=== PATIENT | female | born 1985 | race Caucasian/White ===

== ENCOUNTER 2016-10-23 22:32 | Emergency (ER) | payer SELFPAY ==
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
[2016-10-23] MEDS: ALPRAZOLAM 0.25 MG TABLET PO ONE (23:32)
== END 2016-10-23 23:47 | disposition home or self-care (01) ==
LOC: ER 22:32
DX: F41.9 Anxiety disorder, unspecified (principal); R07.9 Chest pain, unspecified; R20.0 Anesthesia of skin; R68.2 Dry mouth, unspecified
CPT/HCPCS: 93005; 93010; 99284

== ENCOUNTER 2017-09-26 10:30 | Emergency (ER) | payer MEDICAID ==
--- NOTE | 2017-09-26 10:53 | Emergency Department Record ---
History of Present Illness - General Chief complaint: Dental Stated complaint: Tooth/Oral pain Time Seen by Provider: 09/26/17 10:38 Source: Patient Mode of Arrival: Ambulatory Limitations: No limitations - History of Present Illness Initial comments: The patient is here due to L lower jaw molar pain for 2-3 days which is worse for the last 24 hours. She states she has had a filling missing from one of the molars for a long time and now thinks it could be causing the problem. She had a Laparoscopy done 5 days ago and since has had issues there. The pain is radiating to her L ear at times. MD complaint: Tooth pain Onset/Timin -: Days(s) Location: L ear, Other Severity: Moderate Severity scale (1-10): 9 Quality: Aching Consistency: Constant Improves with: None Worsens with: None Associated Symptoms: Other - Related Data Home Medications Medication Instructions Recorded Confirmed Last Taken Hydrocodone/Acetaminophen [[place] 1 tab PO ASDIR 09/26/17 09/26/17 Unknown 5-325 Tablet] Ibuprofen 600 mg PO ASDIR 09/26/17 09/26/17 Unknown Previous Rx's Medication Instructions Recorded Clindamycin HCl [Cleocin HCl] 300 mg PO QID #28 capsule 09/26/17 Allergies Allergy/AdvReac Type Severity Reaction Status Date / Time amoxicillin Allergy HIVES Verified 09/26/17 10:41 dicyclomine HCl [From Bentyl] Allergy HIVES Verified 09/26/17 10:41 Penicillins Allergy HIVES Verified 09/26/17 10:41 Travel Screening - Travel/Exposure Within Last 30 Days Have you traveled within the last 30 days?: No Review of Systems Constitutional: Denies: Chills, Fever Past Medical History - SOCIAL HISTORY Smoking Status: Current every day smoker Alcohol Use: None Drug Use: None - RESPIRATORY Hx Respiratory Disorders: Yes Hx Asthma: Yes (as a child) - CARDIOVASCULAR Hx Cardio Disorders: No - NEURO Hx Neuro Disorders: No - GI Hx GI Disorders: No - Hx Genitourinary Disorders: Yes Hx UTI: Yes - ENDOCRINE Hx Endocrine Disorders: No - MUSCULOSKELETAL Hx Musculoskeletal Disorders: No - PSYCH Hx Psych Problems: Yes Hx Anxiety: Yes - HEMATOLOGY/ONCOLOGY Hx Hematology/Oncology Disorders: No Family Medical History Any Significant Family History?: Yes Hx Cancer: Grandparents Hx Diabetes: Father, Brother/Sister, Grandparents Hx Heart Disease: Grandparents Physical Exam - General General Appearance: Alert, Cooperative, No acute distress - Head Head exam: Atraumatic, Normocephalic, Normal inspection - Eye Eye exam: Normal appearance, PERRL, EOMI - ENT ENT exam: Normal exam, Mucous membranes moist, Normal external ear exam, Normal orophraynx, TM's normal bilaterally Teeth exam: Normal inspection, Dental caries, Dental tenderness # (18 and 19. tapping on the teeth does reproduce the pain. There is no gum line swelling or abscess. There is a filling missing on tooth # 19.) Throat exam: Normal inspection - Neck Neck exam: Normal inspection, Full ROM. negative: Tenderness - Respiratory Respiratory exam: Normal lung sounds bilaterally. negative: Respiratory distress - Cardiovascular Cardiovascular Exam: Regular rate, Normal rhythm, Normal heart sounds Course Vital Signs 09/26/17 10:40 Temperature 97.6 F Pulse Rate [ 71 Pulse Ox Probe] Respiratory 16 Rate Blood Pressure 129/91 [Left Arm] Pulse Ox 100 - Reevaluation(s) Reevaluation #1: I explained to the patient that she will need to take the Abx and see a Dentist YOMI and she does understand the plan. 09/26/17 10:56 Disposition Disposition: Discharge Clinical Impression: Pain, dental Disposition: Home, Self-Care Condition: (1) Good Instructions: Toothache (ED) Additional Instructions: Please see your Dentist YOMI. Take the Clindamycin as directed along with your home pain medicines. Please return to the ER for any worsening symptoms. Prescriptions: Clindamycin HCl [Cleocin HCl] 300 mg PO QID #28 capsule Forms: Patient Portal Access Time of Disposition: 10:53 Quality - Quality Measures Quality Measures: N/A - Blood Pressure Screening View Details: Yes Does Patient Have Any of the Following: No Blood Pressure Classification: Hypertensive Reading Systolic Measurement: 129 Diastolic Measurement: 91 Screening for High Blood Pressure: < Pre-Hypertensive BP, F/U Documented > [ G8950] Pre-Hypertensive Follow-up Interventions: Referral to alternative/primary care provider.
== END 2017-09-26 11:05 | disposition home or self-care (01) ==
LOC: ER 10:30
DX: K02.9 Dental caries, unspecified (principal)
CPT/HCPCS: 99282

== ENCOUNTER 2017-12-19 18:15 | Emergency (ER) | payer MEDICAID ==
--- NOTE | 2017-12-19 18:48 | Emergency Department Record ---
History of Present Illness - General Chief Complaint: Abdominal Pain Stated Complaint: ABDOMINAL PAIN Time Seen by Provider: 12/19/17 18:33 Source: Patient Mode of Arrival: Ambulatory Limitations: No limitations - History of Present Illness Initial Comments: 32 yo female presents to ED for evaluation of abnormal vaginal bleeding that began this afternoon while at work, reports that her last normal menstrual cycle was approximately 10 days ago. Patient denies , but does report a history of PCOS and occasional irregular menses. Patient reports recent laparoscopy for possible endometriosis in October of this year, was negative for the diagnosis. MD Complaint: Abdominal pain Onset/Timin -: Days(s) Radiation: None Severity: Mild Quality: Cramping Consistency: Intermittent Improves With: Nothing Worsens With: Nothing Associated Symptoms: Other (vaginal bleeding) - Related Data LMP (females 10-50): Last week Patient : No Previous Rx's Medication Instructions Recorded Metronidazole [Flagyl] 500 mg PO TID #21 tablet 12/19/17 Allergies Allergy/AdvReac Type Severity Reaction Status Date / Time amoxicillin Allergy HIVES Verified 09/26/17 10:41 dicyclomine HCl [From Bentyl] Allergy HIVES Verified 09/26/17 10:41 Penicillins Allergy HIVES Verified 09/26/17 10:41 Travel Screening - Travel/Exposure Within Last 30 Days Have you traveled within the last 30 days?: No Review of Systems Constitutional: Denies: Chills, Fever, Malaise, Night sweats Eyes: Denies: Eye discharge, Eye pain ENT: Denies: Congestion, Ear pain, Epistaxis Respiratory: Denies: Cough, Dyspnea Cardiovascular: Denies: Chest pain, Dyspnea on exertion, Palpitations Endocrine: Denies: Fatigue, Heat or cold intolerance Gastrointestinal: Reports: Abdominal pain. Denies: Nausea, Vomiting Genitourinary: Reports: Abnormal menses. Denies: Incontinence, Retention Musculoskeletal: Denies: Arthralgia, Back pain, Gout, Joint swelling Skin: Denies: Bruising, Change in color Neurological: Denies: Abnormal gait, Confusion, Headache Psychiatric: Denies: Anxiety Hematological/Lymphatic: Denies: Anemia, Blood Clots Past Medical History - SOCIAL HISTORY Smoking Status: Current every day smoker - RESPIRATORY Hx Respiratory Disorders: Yes Hx Asthma: Yes (as a child) - CARDIOVASCULAR Hx Cardio Disorders: No - NEURO Hx Neuro Disorders: No - GI Hx GI Disorders: No - Hx Genitourinary Disorders: Yes Hx UTI: Yes - ENDOCRINE Hx Endocrine Disorders: No - MUSCULOSKELETAL Hx Musculoskeletal Disorders: No - PSYCH Hx Psych Problems: Yes Hx Anxiety: Yes - HEMATOLOGY/ONCOLOGY Hx Hematology/Oncology Disorders: No Family Medical History Any Significant Family History?: Yes Hx Cancer: Grandparents Hx Diabetes: Father, Brother/Sister, Grandparents Hx Heart Disease: Grandparents Physical Exam - General General Appearance: Alert, Oriented x3, Cooperative, No acute distress Limitations: No limitations - Head Head exam: Atraumatic, Normocephalic, Normal inspection Head exam detail: negative: Abrasion, Contusion, Ingram's sign, General tenderness, Hematoma, Laceration - Eye Eye exam: Normal appearance. negative: Conjunctival injection, Periorbital swelling, Periorbital tenderness, Scleral icterus - ENT Ear exam: negative: Auricular hematoma, Auricular trauma Nasal Exam: negative: Active bleeding, Discharge, Dried blood, Foreign body Mouth exam: negative: Drooling, Laceration, Muffled voice, Tongue elevation - Neck Neck exam: Normal inspection. negative: Meningismus, Tenderness - Respiratory Respiratory exam: Normal lung sounds bilaterally. negative: Respiratory distress, Rhonchi, Wheezes - Cardiovascular Cardiovascular Exam: Regular rate, Normal rhythm, Normal heart sounds - GI/Abdominal GI/Abdominal exam: Soft, Tenderness (Mild TTP over the suprapubic region, LLQ, no rebound or guarding symptoms are present.). negative: Rebound, Rigid - Rectal Rectal exam: Deferred - exam: Deferred - Extremities Extremities exam: Normal inspection. negative: Calf tenderness, Pedal edema, Tenderness - Back Back exam: Denies: CVA tenderness (R), CVA tenderness (L) - Neurological Neurological exam: Alert, Normal gait, Oriented X3 - Psychiatric Psychiatric exam: Normal affect, Normal mood - Skin Skin exam: Normal color. negative: Abrasion Type of lesion: negative: abrasion Course Vital Signs 12/19/17 18:17 Temperature 97.9 F Pulse Rate 80 Respiratory 18 Rate Blood Pressure 135/88 Pulse Ox 99 - Reevaluation(s) Reevaluation #1: 12/19/17 19:49 Labs reviewed, UA demonstrates clue cells present, labs are otherwise grossly unremarkable for an acute process. Symptoms appear c/w DUB. Will initiate Flagyl as directed with instructions for the patient to follow-up with her policy and planning manager in 3-5 days as directed. Medical Decision Making - Lab Data Result diagrams: 12/19/17 18:50 12/19/17 18:50 Disposition Disposition: Discharge Clinical Impression: DUB (dysfunctional uterine bleeding), Bacterial vaginosis Disposition: Home, Self-Care Condition: (2) Stable Instructions: Dysfunctional Uterine Bleeding (ED) Additional Instructions: Return to ED if your symptoms worsen or if you have any concerns. Follow-up with your policy and planning manager in 3-5 days as directed. Prescriptions: Metronidazole [Flagyl] 500 mg PO TID #21 tablet Forms: Patient Portal Access Time of Disposition: 19:51 Quality - Quality Measures Quality Measures: N/A - Blood Pressure Screening Does Patient Have Any of the Following: No Blood Pressure Classification: Pre-Hypertensive BP Reading Systolic Measurement: 135 Diastolic Measurement: 88 Screening for High Blood Pressure: < Pre-Hypertensive BP, F/U Documented > [ G8950] Pre-Hypertensive Follow-up Interventions: Referral to alternative/primary care provider.
[2017-12-19 19:00] LABS: BASO % 0.4 % (0-6); GRAN % 58.2 % (47-80); HEMATOCRIT 38.7 % (35.0-47.0); LYMPH % 30.3 % (16-45); MEAN CELL VOLUME 92.6 fl (81-97); MEAN CORPUSCULAR HEMOGLOBIN 31.1 pg (27-33); MEAN CORPUSCULAR HGB CONC 33.6 g/dl (32-36); MEAN PLATELET VOLUME 8.8 fl (7.4-10.4); MONO % 8.1 % (0-9); PLATELET COUNT 324 K/uL (130-400); RED BLOOD COUNT 4.18 M/uL (3.80-5.40); RED CELL DISTRIBUTION WIDTH 12.1 % (11.5-14.5)
[2017-12-19 19:03] LABS: HCG,QUALITATIVE URINE NEGATIVE (NEGATIVE)
[2017-12-19 19:04] LABS: URINE APPEARANCE CLEAR; URINE BILIRUBIN NEGATIVE (NEGATIVE); URINE BLOOD MODERATE (NEGATIVE); URINE COLOR YELLOW; URINE GLUCOSE (UA) NEGATIVE (NEGATIVE); URINE KETONE NEGATIVE (NEGATIVE); URINE LEUKOCYTE ESTERASE NEGATIVE (NEGATIVE); URINE NITRITE NEGATIVE (NEGATIVE); URINE PROTEIN NEGATIVE (NEGATIVE); URINE UROBILINOGEN 0.2 E.U./dL (0.20 - 1.00)
[2017-12-19 19:10] LABS: BLOOD UREA NITROGEN 18 mg/dL (6-20); CREATININE 0.5 mg/dL (0.5-0.9); EST GLOMERULAR FILTRATION RATE > 60 mL/min; TOTAL PROTEIN 6.7 g/dL (6.6-8.7)
[2017-12-19 19:12] LABS: GLUCOSE,RANDOM 101 mg/dL (74-109)
[2017-12-19 19:15] LABS: ALBUMIN 4.5 g/dL (4.0-5.0); ALKALINE PHOSPHATASE 32 U/L (35-104); ALT/SGPT 17 U/L (<33); AST/SGOT 17 U/L (10.0-35.0); URINE BACTERIA 1+; URINE OTHER CLUE CELLS PRESENT; URINE WBC 0 - 2 (0-2/hpf)
[2017-12-19] MEDS ORDERED: METRONIDAZOLE 250 MG TABLET PO ONE (19:54)
== END 2017-12-19 20:01 | disposition home or self-care (01) ==
LOC: ER 18:15
DX: N93.8 Other specified abnormal uterine and vaginal bleeding (principal); N76.0 Acute vaginitis; R19.7 Diarrhea, unspecified; F17.210 Nicotine dependence, cigarettes, uncomplicated
CPT/HCPCS: 80053; 81001; 81025; 85025; 99283

== ENCOUNTER 2018-02-26 12:01 | Emergency (ER) | payer MEDICAID ==
--- NOTE | 2018-02-26 12:25 | Emergency Department Record ---
History of Present Illness - General Chief complaint: ENT Stated complaint: FEELS LIKE SOMETHING AROUND THROAT Time Seen by Provider: 02/26/18 12:16 Source: Patient Mode of Arrival: Ambulatory Limitations: No limitations - History of Present Illness Initial comments: 32 yo female presents about one month of swollen glands in the neck area. She reports she has seen her PCP and been in the ER. She reports she has had blood tests, US, and CT scan. She reports she is not improving. She called her PCP today and was told to go to the ER because they do not have any appointments. No choking, no voice changes, no vomiting. No fevers. She states Wells, Mumps were negative. She had been treated with antibiotics. She has seasonal allergies that are starting to increase currently. She is waiting for referral to ENT that her doctor is arranging. MD complaint: Other (swollen glands one month) Onset/Timin -: Month(s) Location: Throat Severity scale (1-10): 2 Quality: Other Consistency: Constant Improves with: None Worsens with: None Associated Symptoms: Other - Related Data Allergies Allergy/AdvReac Type Severity Reaction Status Date / Time cephalexin monohydrate Allergy Mild hives Unverified 01/24/18 09:53 [From Keflex] amoxicillin Allergy HIVES Unverified 01/31/18 12:48 dicyclomine HCl [From Bentyl] Allergy HIVES Unverified 01/31/18 12:48 Iodinated Contrast- Oral and Allergy Unverified 01/24/18 10:32 IV Dye Penicillins Allergy HIVES Unverified 01/31/18 12:48 Travel Screening - Travel/Exposure Within Last 30 Days Have you traveled within the last 30 days?: No Review of Systems Constitutional: Denies: Chills, Fever, Malaise, Weakness Eyes: Denies: Eye discharge ENT: Reports: Throat pain. Denies: Congestion, Ear pain, Epistaxis Respiratory: Denies: Cough, Dyspnea, Hemoptysis, Stridor, Wheezes Cardiovascular: Denies: Chest pain, Palpitations, Syncope Endocrine: Denies: Fatigue Gastrointestinal: Denies: Abdominal pain, Diarrhea, Nausea, Vomiting Genitourinary: Denies: Dysuria, Urgency Musculoskeletal: Denies: Arthralgia, Back pain, Joint swelling, Myalgia Skin: Denies: Bruising, Change in color, Rash Neurological: Denies: Headache, Numbness, Weakness Psychiatric: Denies: Anxiety Hematological/Lymphatic: Reports: Swollen glands. Denies: Easy bleeding, Easy bruising Past Medical History - SOCIAL HISTORY Smoking Status: Former smoker Alcohol Use: None Drug Use: None - RESPIRATORY Hx Respiratory Disorders: Yes Hx Asthma: Yes (as a child) - CARDIOVASCULAR Hx Cardio Disorders: No - NEURO Hx Neuro Disorders: No - GI Hx GI Disorders: No - Hx Genitourinary Disorders: Yes Hx UTI: Yes - ENDOCRINE Hx Endocrine Disorders: No - MUSCULOSKELETAL Hx Musculoskeletal Disorders: No - PSYCH Hx Psych Problems: Yes Hx Anxiety: Yes - HEMATOLOGY/ONCOLOGY Hx Hematology/Oncology Disorders: No Family Medical History Any Significant Family History?: Yes Hx Cancer: Grandparents Hx Diabetes: Father, Brother/Sister, Grandparents Hx Heart Disease: Grandparents Physical Exam - General General Appearance: Alert, Oriented x3 Limitations: No limitations - Head Head exam: Normal inspection - Eye Eye exam: Normal appearance, PERRL. negative: Conjunctival injection, Periorbital swelling, Scleral icterus Pupils: Normal accommodation - ENT ENT exam: Normal exam, Mucous membranes moist, Normal external ear exam, Normal orophraynx, TM's normal bilaterally Ear exam: Normal external inspection. negative: External canal tenderness Nasal Exam: Normal inspection. negative: Discharge, Sinus tenderness Mouth exam: Normal external inspection, Tongue normal Teeth exam: Normal inspection. negative: Dental caries Throat exam: Normal inspection. negative: Tonsillar erythema, Tonsillomegaly, Tonsillar exudate, R peritonsillar mass, L peritonsillar mass - Neck Neck exam: Normal inspection, Full ROM, Lymphadenopathy (soft cervical adenopathy Left greater than right, no warmth or redness, mild prominence submandibular). negative: Tenderness - Respiratory Respiratory exam: Normal lung sounds bilaterally. negative: Respiratory distress - Cardiovascular Cardiovascular Exam: Regular rate, Normal rhythm, Normal heart sounds Peripheral Pulses: 2+: Radial (R), Radial (L) - GI/Abdominal GI/Abdominal exam: Soft, Normal bowel sounds. negative: Tenderness - Rectal Rectal exam: Deferred - exam: Deferred - Extremities Extremities exam: Normal inspection, Full ROM, Normal capillary refill. negative: Tenderness - Back Back exam: Reports: Normal inspection, Full ROM. Denies: CVA tenderness (R), CVA tenderness (L), Muscle spasm, Rash noted, Tenderness - Neurological Neurological exam: Alert, Normal gait, Oriented X3 - Psychiatric Psychiatric exam: Normal affect, Normal mood. negative: Agitated, Anxious - Skin Skin exam: Dry, Intact, Normal color, Warm Course Vital Signs 02/26/18 12:05 Temperature 98.1 F Pulse Rate 88 Respiratory 18 Rate Blood Pressure 130/77 Pulse Ox 97 - Reevaluation(s) Reevaluation #1: The CBC was reviewed No acute changes 02/26/18 12:59 02/26/18 13:02 EMR reviewed 01/21/18 CT small R jugulodigastric LN, small intraparotid LN. 01/29/[address] as noted on prior CT. 02/06/18 CT decrease in size on LN. No acute pathology. 02/26/18 13:22 Wells is negative The patient was given copies of her reports She appears well, no distress, clear voice, no signs of obstruction ENT referral will be placed 02/26/18 14:00 [facility] not accepting Medicaid I will contact her PCP for help with referral. 02/26/18 I SW Romina Felder of the [facility]. She will assist in expediting the ENT referral. Medical Decision Making - Lab Data Result diagrams: 02/26/18 12:35 02/26/18 12:35 Disposition Disposition: Discharge Clinical Impression: Cervical adenopathy Disposition: Home, Self-Care Condition: (1) Good Instructions: Lymphadenopathy (ED) Additional Instructions: Return or be seen if worse, any new symptoms or concerns Contact your doctor for the ENT referral Forms: Patient Portal Access Time of Disposition: 14:08 Quality - Quality Measures Quality Measures: N/A - Blood Pressure Screening Does Patient Have Any of the Following: No Blood Pressure Classification: Normal BP Reading Systolic Measurement: 118 Diastolic Measurement: 75 Screening for High Blood Pressure: < Normal BP, F/U Not Required > [G8783]
[2018-02-26 12:46] LABS: BASO % 0.4 % (0-6); EOS % 2.9 % (0-6); GRAN % 52.1 % (47-80); HEMATOCRIT 40.8 % (35.0-47.0); LYMPH % 38.3 % (16-45); MEAN CELL VOLUME 92.7 fl (81-97); MEAN CORPUSCULAR HEMOGLOBIN 31.8 pg (27-33); MEAN CORPUSCULAR HGB CONC 34.3 g/dl (32-36); MEAN PLATELET VOLUME 8.8 fl (7.4-10.4); MONO % 6.3 % (0-9); PLATELET COUNT 320 K/uL (130-400); RED CELL DISTRIBUTION WIDTH 12.6 % (11.5-14.5); WHITE BLOOD COUNT W/O DIFF 7.3 K/uL (4.2-12.2)
[2018-02-26 13:23] LABS: BLOOD UREA NITROGEN 12 mg/dL (6-20); CREATININE 0.5 mg/dL (0.5-0.9); EST GLOMERULAR FILTRATION RATE > 60 mL/min; GLUCOSE,RANDOM 124 mg/dL (74-109)
== END 2018-02-26 14:13 | disposition home or self-care (01) ==
LOC: ER 12:01
DX: R59.0 Localized enlarged lymph nodes (principal); Z87.891 Personal history of nicotine dependence
CPT/HCPCS: 80048; 85025; 86308; 99283

== ENCOUNTER 2018-03-24 17:10 | Emergency (ER) | payer MEDICAID ==
[2018-03-24 17:29] LABS: URINE APPEARANCE CLEAR; URINE BILIRUBIN NEGATIVE (NEGATIVE); URINE BLOOD MODERATE (NEGATIVE); URINE COLOR YELLOW; URINE GLUCOSE (UA) NEGATIVE (NEGATIVE); URINE KETONE NEGATIVE (NEGATIVE); URINE LEUKOCYTE ESTERASE NEGATIVE (NEGATIVE); URINE NITRITE NEGATIVE (NEGATIVE); URINE PROTEIN NEGATIVE (NEGATIVE); URINE UROBILINOGEN 0.2 E.U./dL (0.20 - 1.00)
--- NOTE | 2018-03-24 17:33 | Emergency Department Record ---
History of Present Illness - General Chief complaint: Female Urogenital Problem Stated complaint: POSS KIDNEY INFECTION Time Seen by Provider: 03/24/18 17:23 Source: Patient Mode of Arrival: Ambulatory Limitations: No limitations - History of Present Illness Initial comments: 32 yo female presents with urinary discomfort since yesterday. She has had some mild ache in the low back over the last week as well. She has been treated recently for strep with prolonged swollen glands. She has follow up with ENT. She has been constipated recently as well. She had an XR this week that demonstrated constipation. No fever. No vomiting. No diarrhea. MD Complaint: Dysuria Onset/Timin -: Days(s) Location: Suprapubic Severity: Mild Severity scale (1-10): 7 Consistency: Constant Improves with: None Worsens with: None Patient : No Associated Symptoms: Other - Related Data Previous Rx's Medication Instructions Recorded Polyethylene Glycol 3350 [Miralax] 17 gm PO DAILY #14 packet 03/24/18 Allergies Allergy/AdvReac Type Severity Reaction Status Date / Time cephalexin monohydrate Allergy Mild hives Verified 03/24/18 17:14 [From Keflex] amoxicillin Allergy HIVES Verified 03/24/18 17:14 dicyclomine HCl [From Bentyl] Allergy HIVES Verified 03/24/18 17:14 Iodinated Contrast- Oral and Allergy PT UNSURE Verified 03/24/18 17:14 IV Dye OF REACTION Penicillins Allergy HIVES Verified 03/24/18 17:14 Travel Screening - Travel/Exposure Within Last 30 Days Have you traveled within the last 30 days?: No - Travel/Exposure Within Last Year Have you traveled outside the [place] in the last year?: No - Additonal Travel Details Have you been exposed to anyone with a communicable illness?: No - Travel Symptoms Symptom Screening: None Review of Systems Constitutional: Denies: Chills, Fever, Weakness Eyes: Denies: Eye discharge, Eye pain ENT: Reports: Throat pain. Denies: Congestion Respiratory: Denies: Cough, Dyspnea, Hemoptysis, Stridor, Wheezes Cardiovascular: Denies: Chest pain, Palpitations, Syncope Endocrine: Denies: Fatigue, Polydipsia, Polyuria Gastrointestinal: Reports: As per HPI, Abdominal pain, Constipation. Denies: Diarrhea, Hematemesis, Hematochezia, Melena, Nausea, Vomiting Genitourinary: Reports: Dysuria, Frequency. Denies: Abnormal menses, Hematuria , Incontinence, Retention Musculoskeletal: Reports: Arthralgia, Back pain, Myalgia Skin: Denies: Bruising, Change in color, Rash Neurological: Denies: Numbness, Weakness Psychiatric: Denies: Anxiety Hematological/Lymphatic: Reports: Swollen glands. Denies: Blood Clots, Easy bleeding, Easy bruising Past Medical History - SOCIAL HISTORY Smoking Status: Former smoker Alcohol Use: Occasional Drug Use: None - RESPIRATORY Hx Respiratory Disorders: Yes Hx Asthma: Yes (as a child) - CARDIOVASCULAR Hx Cardio Disorders: No - NEURO Hx Neuro Disorders: No - GI Hx GI Disorders: No - Hx Genitourinary Disorders: Yes Hx UTI: Yes - ENDOCRINE Hx Endocrine Disorders: No - MUSCULOSKELETAL Hx Musculoskeletal Disorders: No - PSYCH Hx Psych Problems: Yes Hx Anxiety: Yes - HEMATOLOGY/ONCOLOGY Hx Hematology/Oncology Disorders: No Family Medical History Any Significant Family History?: Yes Hx Cancer: Grandparents Hx Diabetes: Father, Brother/Sister, Grandparents Hx Heart Disease: Grandparents Physical Exam - General General Appearance: Alert, Oriented x3, Cooperative, No acute distress Limitations: No limitations - Head Head exam: Normal inspection - Eye Eye exam: Normal appearance, PERRL. negative: Conjunctival injection, Scleral icterus - ENT ENT exam: Normal exam, Mucous membranes moist, Normal orophraynx Ear exam: Normal external inspection Nasal Exam: Normal inspection. negative: Discharge Mouth exam: Normal external inspection Teeth exam: Normal inspection Throat exam: Normal inspection. negative: Tonsillar erythema, Tonsillomegaly - Neck Neck exam: Normal inspection, Full ROM, Lymphadenopathy (few very small anterior cervical LN palpable, soft and mobile) - Respiratory Respiratory exam: Normal lung sounds bilaterally. negative: Respiratory distress - Cardiovascular Cardiovascular Exam: Regular rate, Normal rhythm, Normal heart sounds - GI/Abdominal GI/Abdominal exam: Soft. negative: Distended, Guarding, Rebound, Rigid, Tenderness - Rectal Rectal exam: Deferred - exam: Deferred - Back Back exam: Reports: CVA tenderness (R), CVA tenderness (L), Other (Mild CVA tenderness) - Neurological Neurological exam: Alert, Oriented X3 - Psychiatric Psychiatric exam: Normal affect, Normal mood - Skin Skin exam: Dry, Intact, Normal color, Warm Course Vital Signs 03/24/18 17:18 Temperature 98.7 F Pulse Rate 69 Respiratory 18 Rate Blood Pressure 118/89 Pulse Ox 100 - Reevaluation(s) Reevaluation #1: 03/24/18 17:40 UA demonstrates RBC's otherwise negative for infection HCG is negative 03/24/18 18:29 The CBC was reviewed. No acute changes. 03/24/18 18:[address] was reviewed Abundant stool throughout, no acute findings, no renal stones, possible dominant follicle right ovary. 03/24/18 18:38 No acute changes on the BMP. Normal renal function Medical Decision Making - Lab Data Result diagrams: 03/24/18 18:10 03/24/18 18:10 Disposition Disposition: Discharge Clinical Impression: Dysuria Hematuria Qualifiers: Hematuria type: unspecified type Qualified Code(s): R31.9 - Hematuria, unspecified Disposition: Home, Self-Care Condition: (1) Good Instructions: Constipation (ED), Hematuria (ED) Additional Instructions: Follow up with your ENT as scheduled for the swollen glands Follow up with Xin for a repeat urine test in the next 1-2 weeks to ensure the blood resolves Be seen immediately if worse, fever, concerns Take the Miralax as directed for the constipation. Prescriptions: Polyethylene Glycol 3350 [Miralax] 17 gm PO DAILY #14 packet Forms: Patient Portal Access Time of Disposition: 18:38 Quality - Quality Measures Quality Measures: N/A - Blood Pressure Screening Does Patient Have Any of the Following: No Blood Pressure Classification: Pre-Hypertensive BP Reading Systolic Measurement: 118 Diastolic Measurement: 89 Screening for High Blood Pressure: < Pre-Hypertensive BP, F/U Documented > [ G8950] Pre-Hypertensive Follow-up Interventions: Referral to alternative/primary care provider.
[2018-03-24 17:36] LABS: HCG,QUALITATIVE URINE NEGATIVE (NEGATIVE); URINE SQUAMOUS EPITHELIAL CELL 0 - 2 /hpf; URINE WBC 0 - 2 (0-2/hpf)
[2018-03-24 18:20] LABS: BASO % 0.6 % (0-6); GRAN % 46.6 % (47-80); HEMATOCRIT 40.1 % (35.0-47.0); HEMOGLOBIN 13.7 gm/dl (11.6-16.0); LYMPH % 35.5 % (16-45); MEAN CELL VOLUME 93.5 fl (81-97); MEAN CORPUSCULAR HEMOGLOBIN 31.9 pg (27-33); MEAN CORPUSCULAR HGB CONC 34.2 g/dl (32-36); MEAN PLATELET VOLUME 8.9 fl (7.4-10.4); MONO % 12.3 % (0-9); PLATELET COUNT 307 K/uL (130-400); RED BLOOD COUNT 4.29 M/uL (3.80-5.40); RED CELL DISTRIBUTION WIDTH 12.4 % (11.5-14.5); WHITE BLOOD COUNT W/O DIFF 7.2 K/uL (4.2-12.2)
[2018-03-24 18:32] LABS: BLOOD UREA NITROGEN 12 mg/dL (6-20)
[2018-03-24 18:33] LABS: CREATININE 0.6 mg/dL (0.5-0.9); EST GLOMERULAR FILTRATION RATE > 60 mL/min
[2018-03-24 18:35] LABS: GLUCOSE,RANDOM 86 mg/dL (74-109)
--- NOTE | 2018-03-26 07:56 | CT SCAN REPORT ---
EXAM: CT OF THE ABDOMEN AND PELVIS WITHOUT CONTRAST HISTORY: HEMATURIA. TECHNIQUE: CT of the abdomen and pelvis was obtained without oral or IV contrast. This limits evaluation of bowel and solid visceral organs. Comparison: None. FINDINGS: Limited evaluation of the lung bases is unremarkable. The osseous structures are grossly intact. Limited evaluation of the liver, spleen, adrenal glands, pancreas, and kidneys is unremarkable. Negative for urinary tract calculus or hydronephrosis. The gallbladder is present. No gross evidence for bowel obstruction. There is a large amount of stool in the colon. The urinary bladder is not distended, limiting its evaluation. No free air or free fluid. There is a 3.7 x 3.5 cm right adnexal cyst, likely a dominant follicle. The appendix is not well seen. No pericecal inflammation. IMPRESSION: 1. NEGATIVE FOR URINARY TRACT CALCULUS OR HYDRONEPHROSIS. 2. PROBABLE DOMINANT FOLLICLE OF THE RIGHT ADNEXA. ABUNDANT STOOL IN THE COLON. JOB NUMBER: [id number] MTDD
== END 2018-03-24 19:04 | disposition home or self-care (01) ==
LOC: ER 17:10
DX: R30.0 Dysuria (principal); M54.5 Low back pain; R31.29 Other microscopic hematuria; K59.00 Constipation, unspecified; Z87.891 Personal history of nicotine dependence
CPT/HCPCS: 74176; 80048; 81001; 81025; 85025; 99283; 99284

== ENCOUNTER 2018-09-21 12:33 | Emergency (ER) | payer MEDICAID ==
--- NOTE | 2018-09-21 13:04 | Emergency Department Record ---
History of Present Illness - General Chief complaint: Allergic Reaction Stated complaint: REACTION TO ALLERGY TESTING Time Seen by Provider: 09/21/18 12:47 Source: Patient Mode of Arrival: Ambulatory Limitations: No limitations - History of Present Illness Initial Comments: The patient is here due to not feeling well after allergy testing 2 days ago. She had testing done to her L arm and now still has the naik present. Today she felt she was having some trouble breathing and that her face felt swollen. Presently she has no cough, SOB, CHAR, tongue swelling, voice changes, rashes, or difficulty swallowing. Onset/Timin -: Days(s) Exposure: Other Symptoms: Difficulty breathing, Other Severity: Mild Treatment Prior to Arrival: None Previous Allergy History: None - Related Data Previous Rx's Medication Instructions Recorded Prednisone [Prednisone 20Mg] 40 mg PO DAILY #10 tab 09/21/18 Allergies Allergy/AdvReac Type Severity Reaction Status Date / Time cephalexin monohydrate Allergy Mild hives Unverified 08/09/18 10:03 [From Keflex] amoxicillin Allergy HIVES Unverified 08/09/18 10:03 dicyclomine HCl [From Bentyl] Allergy HIVES Unverified 08/09/18 10:03 Iodinated Contrast- Oral and Allergy PT UNSURE Unverified 08/09/18 10:03 IV Dye OF REACTION Penicillins Allergy HIVES Unverified 08/09/18 10:03 Travel Screening - Travel/Exposure Within Last 30 Days Have you traveled within the last 30 days?: No Review of Systems Constitutional: Denies: Chills, Fever Past Medical History - SOCIAL HISTORY Smoking Status: Former smoker - RESPIRATORY Hx Respiratory Disorders: Yes Hx Asthma: Yes (as a child) - CARDIOVASCULAR Hx Cardio Disorders: No - NEURO Hx Neuro Disorders: No - GI Hx GI Disorders: No - Hx Genitourinary Disorders: Yes Hx UTI: Yes - ENDOCRINE Hx Endocrine Disorders: No - MUSCULOSKELETAL Hx Musculoskeletal Disorders: No - PSYCH Hx Psych Problems: Yes Hx Anxiety: Yes - HEMATOLOGY/ONCOLOGY Hx Hematology/Oncology Disorders: No Family Medical History Any Significant Family History?: Yes Hx Cancer: Grandparents Hx Diabetes: Father, Brother/Sister, Grandparents Hx Heart Disease: Grandparents Physical Exam - General General Appearance: Alert, Oriented x3, Cooperative, No acute distress - Head Head exam: Atraumatic, Normocephalic, Normal inspection - Eye Eye exam: Normal appearance, PERRL, EOMI - ENT ENT exam: Normal exam Mouth exam: Normal external inspection, Tongue normal. negative: Drooling, Laceration, Tongue elevation, Trismus Teeth exam: Normal inspection Throat exam: Normal inspection. negative: Tonsillar erythema, Tonsillar exudate - Neck Neck exam: Normal inspection, Full ROM. negative: Lymphadenopathy, Meningismus , Tenderness - Respiratory Respiratory exam: Normal lung sounds bilaterally. negative: Respiratory distress - Cardiovascular Cardiovascular Exam: Regular rate, Normal rhythm, Normal heart sounds - Extremities Extremities exam: Normal inspection, Full ROM, Normal capillary refill. negative: Tenderness - Neurological Neurological exam: Alert. negative: Motor sensory deficit Course Vital Signs 09/21/18 12:46 Temperature 98.2 F Pulse Rate [ 79 Pulse Ox Probe] Respiratory 18 Rate Blood Pressure 118/81 [Left Arm] Pulse Ox 97 - Reevaluation(s) Reevaluation #1: I did discuss with the patient the need for taking Benadryl for the next few days. She also is to take the Prednisone as directed and see her PCP if not better on Monday. Presently I see no signs of any allergic rxn but due to her complaints will treat her as such. 09/21/18 12:59 09/21/18 13:08 Disposition Disposition: Discharge Clinical Impression: Allergy Qualifiers: Encounter type: initial encounter Qualified Code(s): T78.40XA - Allergy, unspecified, initial encounter Disposition: Home, Self-Care Condition: (2) Stable Instructions: Allergy Antigen (By injection) Additional Instructions: Please take Benadryl for the next 3 days and also take the Prednisone. Please see your family doctor for recheck in 3 days and return to the ER for any worsening symptoms. Prescriptions: Prednisone [Prednisone 20Mg] 40 mg PO DAILY #10 tab Forms: Patient Portal Access Time of Disposition: 13:03 Quality - Quality Measures Quality Measures: N/A - Blood Pressure Screening View Details: Yes Does Patient Have Any of the Following: No Blood Pressure Classification: Pre-Hypertensive BP Reading Systolic Measurement: 118 Diastolic Measurement: 81 Screening for High Blood Pressure: < Pre-Hypertensive BP, F/U Documented > [ G8950] Pre-Hypertensive Follow-up Interventions: Referral to alternative/primary care provider.
--- NOTE | 2018-09-21 13:54 | Emergency Department Record ---
History of Present Illness - General Chief complaint: Allergic Reaction Stated complaint: REACTION TO ALLERGY TESTING Time Seen by Provider: 09/21/18 12:47 Source: Patient Mode of Arrival: Ambulatory Limitations: No limitations - History of Present Illness Onset/Timin -: Days(s) Exposure: Other Symptoms: Difficulty breathing, Other Severity: Mild Treatment Prior to Arrival: None Previous Allergy History: None - Related Data Previous Rx's Medication Instructions Recorded Prednisone [Prednisone 20Mg] 40 mg PO DAILY #10 tab 09/21/18 Allergies Allergy/AdvReac Type Severity Reaction Status Date / Time cephalexin monohydrate Allergy Mild hives Unverified 08/09/18 10:03 [From Keflex] amoxicillin Allergy HIVES Unverified 08/09/18 10:03 dicyclomine HCl [From Bentyl] Allergy HIVES Unverified 08/09/18 10:03 Iodinated Contrast- Oral and Allergy PT UNSURE Unverified 08/09/18 10:03 IV Dye OF REACTION Penicillins Allergy HIVES Unverified 08/09/18 10:03 Travel Screening - Travel/Exposure Within Last 30 Days Have you traveled within the last 30 days?: No Review of Systems Constitutional: Denies: Chills, Fever Past Medical History - SOCIAL HISTORY Smoking Status: Former smoker - RESPIRATORY Hx Respiratory Disorders: Yes Hx Asthma: Yes (as a child) - CARDIOVASCULAR Hx Cardio Disorders: No - NEURO Hx Neuro Disorders: No - GI Hx GI Disorders: No - Hx Genitourinary Disorders: Yes Hx UTI: Yes - ENDOCRINE Hx Endocrine Disorders: No - MUSCULOSKELETAL Hx Musculoskeletal Disorders: No - PSYCH Hx Psych Problems: Yes Hx Anxiety: Yes - HEMATOLOGY/ONCOLOGY Hx Hematology/Oncology Disorders: No Family Medical History Any Significant Family History?: Yes Hx Cancer: Grandparents Hx Diabetes: Father, Brother/Sister, Grandparents Hx Heart Disease: Grandparents Physical Exam - General Limitations: No limitations Course Vital Signs 09/21/18 12:46 Temperature 98.2 F Pulse Rate [ 79 Pulse Ox Probe] Respiratory 18 Rate Blood Pressure 118/81 [Left Arm] Pulse Ox 97 - Reevaluation(s) Reevaluation #1: The patient is also presently on no home medicines. 09/21/18 13:54 Disposition Clinical Impression: Allergy Qualifiers: Encounter type: initial encounter Qualified Code(s): T78.40XA - Allergy, unspecified, initial encounter Disposition: Home, Self-Care Condition: (2) Stable Instructions: Allergy Antigen (By injection) Additional Instructions: Please take Benadryl for the next 3 days and also take the Prednisone. Please see your family doctor for recheck in 3 days and return to the ER for any worsening symptoms. Prescriptions: Prednisone [Prednisone 20Mg] 40 mg PO DAILY #10 tab Forms: Patient Portal Access Quality - Quality Measures Quality Measures: N/A - Blood Pressure Screening View Details: Yes Does Patient Have Any of the Following: No Blood Pressure Classification: Pre-Hypertensive BP Reading Systolic Measurement: 118 Diastolic Measurement: 81 Screening for High Blood Pressure: < Pre-Hypertensive BP, F/U Documented > [ G8950] Pre-Hypertensive Follow-up Interventions: Referral to alternative/primary care provider.
== END 2018-09-21 13:22 | disposition home or self-care (01) ==
LOC: ER 12:33
DX: T78.40XA Allergy, unspecified, initial encounter (principal); R06.00 Dyspnea, unspecified; R22.0 Localized swelling, mass and lump, head; Z87.891 Personal history of nicotine dependence
CPT/HCPCS: 99282

== ENCOUNTER 2018-10-18 15:41 | Emergency (ER) | payer MEDICAID ==
--- NOTE | 2018-10-18 16:41 | Emergency Department Record ---
History of Present Illness - General Chief complaint: Facial Swelling Stated complaint: REACTION/ SWELLING IN FACE Time Seen by Provider: 10/18/18 16:28 Source: Patient Mode of Arrival: Ambulatory Limitations: No limitations - History of Present Illness Initial Comments: 32 yo female presents with itching and swelling. This has been a recurrent issue on and off over the last year. She has been improving an anti-histamine but the worsened recently. She has seen and net repairer and and ENT. She tested positive for EBV. She has follow up with Brad PADILLA in 10 days. No choking, no tongue swelling. No cough. No chest pain or shortness of breath. MD Complaint: Facial swelling Onset/Timin -: Days(s) Exposure: Unknown, Food, Medication Symptoms: Itching, Rash, Facial swelling, Other Severity: Mild Treatment Prior to Arrival: Benadryl Previous Allergy History: Prior ED visit(s), Other - Related Data Home Medications Medication Instructions Recorded Confirmed Last Taken Cannabidiol (Cbd) Extract 100 mg PO DAILY 10/18/18 10/18/18 10/17/18 08:00 [Epidiolex] Cetirizine HCl 10 mg PO DAILY 10/18/18 10/18/18 10/18/18 08:00 Previous Rx's Medication Instructions Recorded Methylprednisolone [Medrol Dose 0 mg PO UD #1 tab.ds.pk 10/18/18 Pack] Allergies Allergy/AdvReac Type Severity Reaction Status Date / Time cephalexin monohydrate Allergy Mild hives Verified 10/18/18 16:07 [From Keflex] amoxicillin Allergy HIVES Verified 10/18/18 16:07 dicyclomine HCl [From Bentyl] Allergy HIVES Verified 10/18/18 16:07 Iodinated Contrast- Oral and Allergy PT UNSURE Verified 10/18/18 16:07 IV Dye OF REACTION Penicillins Allergy HIVES Verified 10/18/18 16:07 Travel Screening - Travel/Exposure Within Last 30 Days Have you traveled within the last 30 days?: No - Travel/Exposure Within Last Year Have you traveled outside the [place] in the last year?: No - Additonal Travel Details Have you been exposed to anyone with a communicable illness?: No - Travel Symptoms Symptom Screening: None Review of Systems Constitutional: Denies: Chills, Fever, Malaise, Weakness Eyes: Denies: Eye discharge ENT: Denies: Congestion, Throat pain Respiratory: Denies: Cough, Dyspnea Cardiovascular: Denies: Chest pain, Palpitations, Syncope Endocrine: Denies: Fatigue Gastrointestinal: Denies: Abdominal pain, Diarrhea, Nausea, Vomiting Genitourinary: Denies: Dysuria Musculoskeletal: Denies: Arthralgia, Back pain, Myalgia Skin: Reports: Pruritus, Rash. Denies: Bruising, Change in color Neurological: Denies: Headache Psychiatric: Denies: Anxiety Hematological/Lymphatic: Denies: Easy bleeding, Easy bruising, Swollen glands Past Medical History - SOCIAL HISTORY Smoking Status: Former smoker Alcohol Use: Rare Drug Use: None - RESPIRATORY Hx Respiratory Disorders: Yes Hx Asthma: Yes (as a child) - CARDIOVASCULAR Hx Cardio Disorders: No - NEURO Hx Neuro Disorders: No - GI Hx GI Disorders: No - Hx Genitourinary Disorders: Yes Hx UTI: Yes - ENDOCRINE Hx Endocrine Disorders: No - MUSCULOSKELETAL Hx Musculoskeletal Disorders: No - PSYCH Hx Psych Problems: Yes Hx Anxiety: Yes - HEMATOLOGY/ONCOLOGY Hx Hematology/Oncology Disorders: No Family Medical History Any Significant Family History?: Yes Hx Cancer: Grandparents Hx Diabetes: Father, Brother/Sister, Grandparents Hx Heart Disease: Grandparents Physical Exam - General General Appearance: Alert, Oriented x3, Cooperative, No acute distress Limitations: No limitations - Head Head exam: Normal inspection - Eye Eye exam: Normal appearance. negative: Conjunctival injection - ENT ENT exam: Normal exam, Mucous membranes moist Ear exam: Normal external inspection Nasal Exam: Normal inspection Mouth exam: Normal external inspection Teeth exam: Normal inspection Throat exam: Normal inspection. negative: Tonsillar erythema - Neck Neck exam: Normal inspection, Full ROM. negative: Lymphadenopathy, Meningismus - Respiratory Respiratory exam: Normal lung sounds bilaterally. negative: Accessory muscle use, Decreased breath sounds, Prolonged expiratory, Rhonchi, Stridor, Wheezes - Cardiovascular Cardiovascular Exam: Regular rate, Normal rhythm, Normal heart sounds - GI/Abdominal GI/Abdominal exam: Soft. negative: Tenderness - Rectal Rectal exam: Deferred - exam: Deferred - Extremities Extremities exam: Normal inspection. negative: Tenderness - Back Back exam: Denies: CVA tenderness (R), CVA tenderness (L) - Neurological Neurological exam: Alert, Oriented X3 - Psychiatric Psychiatric exam: negative: Agitated, Anxious - Skin Skin exam: Dry, Intact, Normal color, Urticaria (scattered on face, neck, legs) , Warm Course Vital Signs 10/18/18 15:54 Temperature 98.4 F Pulse Rate 86 Respiratory 20 Rate Blood Pressure 129/81 Pulse Ox 99 Disposition Disposition: Discharge Clinical Impression: Allergy Disposition: Home, Self-Care Condition: (1) Good Instructions: Allergies (ED) Additional Instructions: Call your doctor for close follow up Follow up as scheduled with your Manufacturing Area Manager and ID at [facility] Prescriptions: Methylprednisolone [Medrol Dose Pack] 0 mg PO UD #1 tab.ds.pk Forms: Patient Portal Access Time of Disposition: 16:41 Quality - Quality Measures Quality Measures: N/A - Blood Pressure Screening Does Patient Have Any of the Following: No Blood Pressure Classification: Normal BP Reading Systolic Measurement: 106 Diastolic Measurement: 68 Screening for High Blood Pressure: < Normal BP, F/U Not Required > [G8783]
== END 2018-10-18 16:55 | disposition home or self-care (01) ==
LOC: ER 15:41
DX: T78.40XA Allergy, unspecified, initial encounter (principal); R21 Rash and other nonspecific skin eruption; R20.0 Anesthesia of skin; Z87.891 Personal history of nicotine dependence
CPT/HCPCS: 99282

== ENCOUNTER 2018-10-22 12:10 | Emergency (ER) | payer MEDICAID ==
[2018-10-22] MEDS ORDERED: ACETAMINOPHEN 325 MG TAB PO ONE (12:26)
--- NOTE | 2018-10-22 12:36 | Emergency Department Record ---
History of Present Illness - General Chief complaint: Pain Stated complaint: BONE PAIN Time Seen by Provider: 10/22/18 12:11 Source: Patient Mode of Arrival: Ambulatory Limitations: No limitations - History of Present Illness Initial comments: The patient is here due to total body bone pain. She is on day # 4 of a Medrol Dose pack and now is having pain all over her bones. She has had similar issues in the past with oral steroids. The patient also feels like she has throat swelling but is having no CHAR, SOB, voice changes or hoarseness. The patient has had the throat symptoms multiple times in the past similar to this and no specific dx has been given. She also has had a problem with EBV and CMV infections. She was also at an this AM and had a neg strep test. MD Complaint: Joint pain, Other Onset/Timin -: Days(s) - Related Data Previous Rx's Medication Instructions Recorded Methylprednisolone [Medrol Dose 0 mg PO UD #1 tab.ds.pk 10/18/18 Pack] Allergies Allergy/AdvReac Type Severity Reaction Status Date / Time cephalexin monohydrate Allergy Mild hives Verified 10/22/18 12:13 [From Keflex] amoxicillin Allergy HIVES Verified 10/22/18 12:13 dicyclomine HCl [From Bentyl] Allergy HIVES Verified 10/22/18 12:13 Iodinated Contrast- Oral and Allergy PT UNSURE Verified 10/22/18 12:13 IV Dye OF REACTION Penicillins Allergy HIVES Verified 10/22/18 12:13 Travel Screening - Travel/Exposure Within Last 30 Days Have you traveled within the last 30 days?: No Review of Systems Constitutional: Denies: Chills, Fever Eyes: Denies: Eye discharge ENT: Denies: Congestion Respiratory: Denies: Cough, Dyspnea Past Medical History - SOCIAL HISTORY Smoking Status: Former smoker Alcohol Use: None Drug Use: None - RESPIRATORY Hx Respiratory Disorders: Yes Hx Asthma: Yes (as a child) - CARDIOVASCULAR Hx Cardio Disorders: No - NEURO Hx Neuro Disorders: No - GI Hx GI Disorders: No - Hx Genitourinary Disorders: Yes Hx UTI: Yes - ENDOCRINE Hx Endocrine Disorders: No - MUSCULOSKELETAL Hx Musculoskeletal Disorders: No - PSYCH Hx Psych Problems: Yes Hx Anxiety: Yes - HEMATOLOGY/ONCOLOGY Hx Hematology/Oncology Disorders: No Family Medical History Any Significant Family History?: Yes Hx Cancer: Grandparents Hx Diabetes: Father, Brother/Sister, Grandparents Hx Heart Disease: Grandparents Physical Exam - General General Appearance: Alert, Oriented x3, Cooperative, No acute distress - Head Head exam: Atraumatic, Normocephalic, Normal inspection - Eye Eye exam: Normal appearance, PERRL, EOMI - ENT Throat exam: Normal inspection. negative: Tonsillar erythema, Tonsillar exudate - Neck Neck exam: Normal inspection, Full ROM, Other (No swelling is appreciated.). negative: Lymphadenopathy, Meningismus, Tenderness - Respiratory Respiratory exam: Normal lung sounds bilaterally. negative: Respiratory distress - Cardiovascular Cardiovascular Exam: Regular rate, Normal rhythm, Normal heart sounds - Extremities Extremities exam: Normal inspection, Full ROM, Normal capillary refill. negative: Tenderness - Neurological Neurological exam: Alert. negative: Motor sensory deficit Course Vital Signs 10/22/18 12:15 Temperature 98.5 F Pulse Rate 65 Respiratory 16 Rate Blood Pressure 134/84 Pulse Ox 100 - Reevaluation(s) Reevaluation #1: The patient is doing well at this time. She is resting comfortably with no complaints. I explained to her that the results are all WNL's and she will need to stop her oral steroids and see her PCP this week. 10/22/18 13:15 Medical Decision Making - Lab Data Result diagrams: 10/22/18 12:30 10/22/18 12:30 Disposition Disposition: Discharge Clinical Impression: Allergy Disposition: Home, Self-Care Condition: (2) Stable Instructions: Food Allergy (ED) Additional Instructions: Please continue your regular medicines and please see your family doctor or Control [employer] later this week for recheck. Return to the ER for any problems. Forms: Patient Portal Access Time of Disposition: 13:17 Quality - Quality Measures Quality Measures: N/A - Blood Pressure Screening View Details: Yes Does Patient Have Any of the Following: No Blood Pressure Classification: Pre-Hypertensive BP Reading Systolic Measurement: 134 Diastolic Measurement: 84 Screening for High Blood Pressure: < Pre-Hypertensive BP, F/U Documented > [ G8950] Pre-Hypertensive Follow-up Interventions: Referral to alternative/primary care provider.
[2018-10-22 12:44] LABS: BASO % 0.2 % (0-6); EOS % 0.5 % (0-6); GRAN % 65.8 % (47-80); HEMATOCRIT 39.1 % (35.0-47.0); HEMOGLOBIN 13.1 gm/dl (11.6-16.0); LYMPH % 25.7 % (16-45); MEAN CELL VOLUME 94.7 fl (81-97); MEAN CORPUSCULAR HEMOGLOBIN 31.7 pg (27-33); MEAN CORPUSCULAR HGB CONC 33.5 g/dl (32-36); MEAN PLATELET VOLUME 8.8 fl (7.4-10.4); MONO % 7.8 % (0-9); PLATELET COUNT 400 K/uL (130-400); RED BLOOD COUNT 4.13 M/uL (3.80-5.40); RED CELL DISTRIBUTION WIDTH 12.4 % (11.5-14.5); WHITE BLOOD COUNT W/O DIFF 10.5 K/uL (4.2-12.2)
[2018-10-22 13:05] LABS: BLOOD UREA NITROGEN 15 mg/dL (6-20); CREATININE 0.5 mg/dL (0.5-0.9); EST GLOMERULAR FILTRATION RATE > 60 mL/min
[2018-10-22 13:06] LABS: TOTAL PROTEIN 7.1 g/dL (6.6-8.7)
[2018-10-22 13:08] LABS: GLUCOSE,RANDOM 116 mg/dL (74-109)
[2018-10-22 13:10] LABS: ALB/GLOB RATIO 1.4 (1.1-1.8); ALBUMIN 4.2 g/dL (4.0-5.0); ALKALINE PHOSPHATASE 37 U/L (45-87); ALT/SGPT 16 U/L (<33); AST/SGOT 9 U/L (10.0-35.0)
[2018-10-22 13:11] LABS: C-REACTIVE PROTEIN < 0.05 mg/dL (<0.5)
== END 2018-10-22 13:41 | disposition home or self-care (01) ==
LOC: ER 12:10
DX: L27.2 Dermatitis due to ingested food (principal); M89.8X0 Other specified disorders of bone, multiple sites; Z87.891 Personal history of nicotine dependence
CPT/HCPCS: 80053; 85025; 86140; 99283

== ENCOUNTER 2019-04-10 20:14 | Emergency (ER) | payer MEDICAID ==
[2019-04-10] MEDS ORDERED: METHYLPREDNISOLONE PF 125MG/VIAL IM ONE (20:36)
--- NOTE | 2019-04-10 20:42 | Emergency Department Record ---
History of Present Illness - General Chief complaint: Facial Swelling Stated complaint: FACIAL SWELLING,SLURRING WORDS/ALLERGIC REATION Time Seen by Provider: 04/10/19 20:30 Source: Patient Mode of Arrival: Ambulatory Limitations: No limitations - History of Present Illness Initial Comments: pt has had intermittent hives of l eye and l lip MD Complaint: Hives Onset/Timin -: Hour(s) Exposure: Unknown Symptoms: Facial swelling, Lip swelling Severity: Moderate Treatment Prior to Arrival: None Previous Allergy History: None - Related Data Home Medications Medication Instructions Recorded Confirmed Last Taken No Home Med [NO HOME MEDS] 04/10/19 04/10/19 Unknown Allergies Allergy/AdvReac Type Severity Reaction Status Date / Time cephalexin monohydrate Allergy Mild hives Unverified 02/19/19 15:08 [From Keflex] amoxicillin Allergy HIVES Unverified 02/19/19 15:08 dicyclomine HCl [From Bentyl] Allergy HIVES Unverified 02/19/19 15:08 Iodinated Contrast- Oral and Allergy PT UNSURE Unverified 02/19/19 15:08 IV Dye OF REACTION Penicillins Allergy HIVES Unverified 02/19/19 15:08 Travel Screening - Travel/Exposure Within Last 30 Days Have you traveled within the last 30 days?: No - Travel Symptoms Symptom Screening: None Review of Systems Reviewed: No additional complaints except as noted below Constitutional: Reports: As per HPI. Denies: Chills, Fever, Malaise, Night sweats, Weakness, Weight change Eyes: Reports: As per HPI. Denies: Eye discharge, Eye pain, Photophobia, Vision change ENT: Reports: As per HPI. Denies: Congestion, Dental pain, Ear pain, Epistaxis, Hearing loss, Throat pain Respiratory: Reports: As per HPI. Denies: Cough, Dyspnea, Hemoptysis, Stridor, Wheezes Cardiovascular: Reports: As per HPI. Denies: Arrhythmia, Chest pain, Dyspnea on exertion, Edema, Murmurs, Orthopnea, Palpitations, Paroxysmal nocturnal dyspnea, Rheumatic Fever, Syncope Endocrine: Reports: As per HPI. Denies: Fatigue, Heat or cold intolerance, Polydipsia, Polyuria Gastrointestinal: Reports: As per HPI. Denies: Abdominal pain, Constipation, Diarrhea, Hematemesis, Hematochezia, Melena, Nausea, Vomiting Genitourinary: Reports: As per HPI. Denies: Abnormal menses, Discharge, Dyspareunia, Dysuria, Frequency, Hematuria, Incontinence, Retention, Urgency Musculoskeletal: Reports: As per HPI. Denies: Arthralgia, Back pain, Gout, Joint swelling, Myalgia, Neck pain Skin: Reports: As per HPI. Denies: Bruising, Change in color, Change in hair/nails, Lesions, Pruritus, Rash Neurological: Reports: As per HPI. Denies: Abnormal gait, Confusion, Headache, Numbness, Paresthesias, Seizure, Tingling, Tremors, Vertigo, Weakness Psychiatric: Reports: As per HPI. Denies: Anxiety, Auditory hallucinations, Depression, Homicidal thoughts, Suicidal thoughts, Visual hallucinations Hematological/Lymphatic: Reports: As per HPI. Denies: Anemia, Blood Clots, Easy bleeding, Easy bruising, Swollen glands Past Medical History - SOCIAL HISTORY Smoking Status: Former smoker - RESPIRATORY Hx Respiratory Disorders: Yes Hx Asthma: Yes (as a child) - CARDIOVASCULAR Hx Cardio Disorders: No - NEURO Hx Neuro Disorders: No - GI Hx GI Disorders: Yes Hx Celiac Disease: Yes - Hx Genitourinary Disorders: Yes Hx UTI: Yes - ENDOCRINE Hx Endocrine Disorders: No - MUSCULOSKELETAL Hx Musculoskeletal Disorders: No - PSYCH Hx Psych Problems: Yes Hx Anxiety: Yes - HEMATOLOGY/ONCOLOGY Hx Hematology/Oncology Disorders: No Family Medical History Any Significant Family History?: Yes Hx Cancer: Grandparents Hx Diabetes: Father, Brother/Sister, Grandparents Hx Heart Disease: Grandparents Physical Exam - General General Appearance: Alert, Oriented x3, Cooperative, Mild distress - Head Head exam: Normal inspection - Eye Eye exam: Normal appearance, PERRL, EOMI Pupils: Normal accommodation - ENT ENT exam: Normal exam, Mucous membranes moist, Normal external ear exam, Normal orophraynx Ear exam: Normal external inspection. negative: External canal tenderness Nasal Exam: Normal inspection. negative: Discharge, Sinus tenderness Mouth exam: Normal external inspection, Tongue normal Teeth exam: Normal inspection. negative: Dental caries Throat exam: Normal inspection. negative: Tonsillar erythema, Tonsillar exudate - Neck Neck exam: Normal inspection, Full ROM. negative: Tenderness - Respiratory Respiratory exam: Normal lung sounds bilaterally. negative: Respiratory distress - Cardiovascular Cardiovascular Exam: Regular rate, Normal rhythm, Normal heart sounds - GI/Abdominal GI/Abdominal exam: Soft, Normal bowel sounds. negative: Tenderness - Rectal Rectal exam: Deferred - exam: Deferred - Extremities Extremities exam: Normal inspection, Full ROM, Normal capillary refill. negative: Tenderness - Back Back exam: Reports: Normal inspection, Full ROM. Denies: Muscle spasm, Rash noted, Tenderness - Neurological Neurological exam: Alert, CN II-XII intact, Normal gait, Oriented X3 - Psychiatric Psychiatric exam: Normal affect, Normal mood - Skin Skin exam: Dry, Intact, Normal color, Urticaria, Warm Distribution of rash: Face Course Vital Signs 04/10/19 20:23 Temperature 98.6 F Pulse Rate 65 Respiratory 14 Rate Blood Pressure 125/86 Pulse Ox 98 Disposition Disposition: Discharge Clinical Impression: Urticaria Disposition: Home, Self-Care Condition: (1) Good Instructions: Urticaria (ED) Additional Instructions: follow up with family doctor. return sooner if worse. continue benadryl as needed Quality - Quality Measures Quality Measures: N/A - Blood Pressure Screening Does Patient Have Any of the Following: No Blood Pressure Classification: Pre-Hypertensive BP Reading Systolic Measurement: 125 Diastolic Measurement: 86 Screening for High Blood Pressure: < Pre-Hypertensive BP, F/U Documented > [G8950] Pre-Hypertensive Follow-up Interventions: Follow-up with rescreen every year.
== END 2019-04-10 21:01 | disposition home or self-care (01) ==
LOC: ER 20:14
DX: L50.9 Urticaria, unspecified (principal); R22.0 Localized swelling, mass and lump, head; Z87.891 Personal history of nicotine dependence
CPT/HCPCS: 96372; 99283; J2930

== ENCOUNTER 2019-04-20 15:56 | Emergency (ER) | payer MEDICAID ==
--- NOTE | 2019-04-20 16:09 | Emergency Department Record ---
History of Present Illness - General Chief Complaint: Chest Pain Stated Complaint: CHEST PRESSURE/L ARM TIGHT Time Seen by Provider: 04/20/19 16:07 Source: Patient Mode of Arrival: Ambulatory Limitations: No limitations - History of Present Illness Initial Comments: 33 yo female presents with a feeling of heart racing and pounding that started around noon. She was on a casual walk when the symptoms started. The symptoms lasted several minutes then stopped but return shortly there after. During the heart racing it felt tight. No syncope. No shortness of breath. She has some hive on her left wrist that resolved with benadryl. No other swelling or hives. No known underlying heart or lung disease. No family history or early or SCD. No history of DVT or PE. Non smoker. The feeling of the heart racing is not currently present. PCP is Xin Bacon MD Complaint: Other -: Hour(s) (4) Onset: Other (casual walk) Pain Location: Other Pain Radiation: LUE Severity: Moderate Quality: Tightness Consistency: Intermittent Improves With: Nothing Worsens With: Nothing Context: Other Anginal Symptoms: Other Other Symptoms: Other (Hive on the left wrist) Treatments Prior to Arrival: None - Related Data Allergies Allergy/AdvReac Type Severity Reaction Status Date / Time cephalexin monohydrate Allergy Mild hives Verified 04/20/19 16:09 [From Keflex] amoxicillin Allergy HIVES Verified 04/20/19 16:09 dicyclomine HCl [From Bentyl] Allergy HIVES Verified 04/20/19 16:09 Iodinated Contrast- Oral and Allergy PT UNSURE Verified 04/20/19 16:09 IV Dye OF REACTION Penicillins Allergy HIVES Verified 04/20/19 16:09 Review of Systems Constitutional: Denies: Chills, Fever, Malaise, Weakness Eyes: Denies: Eye discharge, Eye pain, Vision change ENT: Denies: Congestion, Throat pain Respiratory: Denies: Cough, Dyspnea, Hemoptysis, Stridor, Wheezes Cardiovascular: Reports: Chest pain (tight with racing heart rate), Palpitations. Denies: Edema, Syncope Endocrine: Denies: Fatigue, Polydipsia, Polyuria Gastrointestinal: Denies: Abdominal pain, Diarrhea, Nausea, Vomiting Genitourinary: Denies: Dysuria, Urgency Musculoskeletal: Denies: Arthralgia, Back pain, Joint swelling, Myalgia Skin: Reports: As per HPI, Rash. Denies: Bruising, Change in color Neurological: Denies: Headache, Weakness Psychiatric: Reports: Anxiety Hematological/Lymphatic: Denies: Easy bleeding, Easy bruising Past Medical History - SOCIAL HISTORY Smoking Status: Former smoker - RESPIRATORY Hx Respiratory Disorders: Yes Hx Asthma: Yes (as a child) - CARDIOVASCULAR Hx Cardio Disorders: No - NEURO Hx Neuro Disorders: No - GI Hx GI Disorders: Yes Hx Celiac Disease: Yes - Hx Genitourinary Disorders: Yes Hx UTI: Yes - ENDOCRINE Hx Endocrine Disorders: No - MUSCULOSKELETAL Hx Musculoskeletal Disorders: No - PSYCH Hx Psych Problems: Yes Hx Anxiety: Yes - HEMATOLOGY/ONCOLOGY Hx Hematology/Oncology Disorders: No Family Medical History Hx Cancer: Grandparents Hx Diabetes: Father, Brother/Sister, Grandparents Hx Heart Disease: Grandparents Physical Exam - General General Appearance: Alert, Oriented x3, Cooperative, No acute distress Limitations: No limitations - Head Head exam: Atraumatic, Normal inspection - Eye Eye exam: Normal appearance, PERRL. negative: Conjunctival injection, Scleral icterus - ENT ENT exam: Normal exam, Mucous membranes moist Ear exam: Normal external inspection Nasal Exam: Normal inspection Mouth exam: Normal external inspection - Neck Neck exam: Normal inspection. negative: Tenderness - Respiratory Respiratory exam: Normal lung sounds bilaterally. negative: Accessory muscle use, Chest wall tenderness, Decreased breath sounds, Prolonged expiratory, Respiratory distress, Rhonchi, Stridor, Wheezes - Cardiovascular Cardiovascular Exam: Regular rate, Normal rhythm, Normal heart sounds Peripheral Pulses: 2+: Radial (R), Radial (L) - GI/Abdominal GI/Abdominal exam: Soft. negative: Tenderness - Rectal Rectal exam: Deferred - exam: Deferred - Extremities Extremities exam: Normal inspection. negative: Calf tenderness, Pedal edema, Tenderness - Back Back exam: Denies: CVA tenderness (R), CVA tenderness (L) - Neurological Neurological exam: Alert, Oriented X3 - Psychiatric Psychiatric exam: Normal affect, Normal mood - Skin Skin exam: Dry, Intact, Normal color, Warm Course - Reevaluation(s) Reevaluation #1: 04/20/19 16:08 EKG #1: 15:59 Rate: 67 Rhythm: sinus [place]: normal Intervals: normal ST segments: normal Prior: 10/23/16 no changes 04/20/19 18:07 The labs were reviewed No acute changes The troponin is negative drawn about 4 hours after the onset of atypical symptoms. HEART SCORE is 0. DC home to follow up with PCP with outpatient follow up for palpitations. Medical Decision Making - Lab Data Result diagrams: 04/20/19 17:10 04/20/19 17:10 Disposition Disposition: Discharge Clinical Impression: Palpitations, Atypical chest pain Disposition: Home, Self-Care Condition: (1) Good Instructions: Heart Palpitations (ED) Additional Instructions: Call your doctor for the next available follow up appointment You have been referred to the cardiology clinic at [facility] for your palpitations Review this ER visit and the tests performed with your family doctor Return to the ER for a recheck if worse, any new concerns or questions Take the prescriptions provided as directed Referrals: Asaf Morales M.D. [MEDICAL DOCTOR] - [facility] [Provider Group] Forms: Patient Portal Access Time of Disposition: 18:08 Quality - Quality Measures Quality Measures: N/A - Blood Pressure Screening Does Patient Have Any of the Following: No Blood Pressure Classification: Normal BP Reading Systolic Measurement: 112 Diastolic Measurement: 66 Screening for High Blood Pressure: < Normal BP, F/U Not Required > [G8783]
[2019-04-20] MEDS ORDERED: ASPIRIN 81 MG CHEWABLE TABLET PO ONE (16:21)
[2019-04-20 17:17] LABS: ABSOLUTE NEUTROPHIL COUNT 5.53; BASO % 0.4 % (0-6); EOS % 1.7 % (0-6); GRAN % 61.3 % (47-80); HEMATOCRIT 40.2 % (35.0-47.0); HEMOGLOBIN 13.6 gm/dl (11.6-16.0); LYMPH % 29.1 % (16-45); MEAN CELL VOLUME 93.3 fl (81-97); MEAN CORPUSCULAR HEMOGLOBIN 31.6 pg (27-33); MEAN CORPUSCULAR HGB CONC 33.8 g/dl (32-36); MEAN PLATELET VOLUME 9.2 fl (7.4-10.4); MONO % 7.5 % (0-9); PLATELET COUNT 283 K/uL (130-400); RED BLOOD COUNT 4.31 M/uL (3.80-5.40); RED CELL DISTRIBUTION WIDTH 12.8 % (11.5-14.5)
[2019-04-20 17:27] LABS: BLOOD UREA NITROGEN 12 mg/dL (6-20); CREATININE 0.6 mg/dL (0.5-0.9); EST GLOMERULAR FILTRATION RATE > 60 mL/min
[2019-04-20 17:28] LABS: TOTAL PROTEIN 7.3 g/dL (6.6-8.7)
[2019-04-20 17:30] LABS: GLUCOSE,RANDOM 101 mg/dL (74-109)
[2019-04-20 17:33] LABS: ALB/GLOB RATIO 1.6 (1.1-1.8); ALBUMIN 4.5 g/dL (4.0-5.0); ALKALINE PHOSPHATASE 35 U/L (35-104); ALT/SGPT 17 U/L (<33); AST/SGOT 21 U/L (10.0-35.0)
[2019-04-20 17:43] LABS: THYROID STIMULATING HORMONE 1.37 uIU/mL (0.270-4.20)
== END 2019-04-20 18:27 | disposition home or self-care (01) ==
LOC: ER 15:56
DX: R00.2 Palpitations (principal); R07.89 Other chest pain; Z87.891 Personal history of nicotine dependence
CPT/HCPCS: 80053; 84443; 84484; 85025; 93005; 93010; 99284

== ENCOUNTER 2019-06-22 05:46 | Emergency (ER) | payer MEDICAID ==
--- NOTE | 2019-06-22 06:37 | Emergency Department Record ---
History of Present Illness - General Chief complaint: Allergic Reaction Stated complaint: ALLERGIC REACTION TO CBD OIL Time Seen by Provider: 06/22/19 06:13 Source: Patient Mode of Arrival: Ambulatory - History of Present Illness Initial Comments: The patient gives a confusing history of mutliple allergies for which she has had to take prednisone and benadryl. She states she has elevated Ig E levels for the past year. She has been seeing multiple doctors for her allergic problems. She states that prednisone helps her from [facility]. She took CBD oil yesterday and now feels like her heart is racing and she "feels funny." She thinks she is reacting in an allergic way because her throat feels tight. She denies rashes or itching. MD Complaint: Other (throat feels tight) Onset/Timin -: Days(s) Exposure: Other Severity: Mild Treatment Prior to Arrival: Benadryl, Steroids Previous Allergy History: Other - Related Data Home Medications Medication Instructions Recorded Confirmed Last Taken Prednisone [Prednisone 20Mg] 1 tab PO DAILY 06/22/19 06/22/19 06/21/19 21:30 Previous Rx's Medication Instructions Recorded Prednisone [Prednisone 20Mg] 20 mg PO DAILY #7 tab 06/22/19 Allergies Allergy/AdvReac Type Severity Reaction Status Date / Time cephalexin monohydrate Allergy Mild hives Verified 06/22/19 05:56 [From Keflex] amoxicillin Allergy HIVES Verified 06/22/19 05:56 dicyclomine HCl [From Bentyl] Allergy HIVES Verified 06/22/19 05:56 Iodinated Contrast Media Allergy PT UNSURE Verified 06/22/19 05:56 OF REACTION Penicillins Allergy HIVES Verified 06/22/19 05:56 ferrous sulfate AdvReac HIVES Verified 06/22/19 05:59 Travel Screening - Travel/Exposure Within Last 30 Days Have you traveled within the last 30 days?: No - Travel/Exposure Within Last Year Have you traveled outside the [place] in the last year?: No - Additonal Travel Details Have you been exposed to anyone with a communicable illness?: No - Travel Symptoms Symptom Screening: None Review of Systems Reviewed: No additional complaints except as noted below Constitutional: Reports: As per HPI. Denies: Chills, Fever, Malaise, Night sweats, Weakness, Weight change Eyes: Reports: As per HPI. Denies: Eye discharge, Eye pain, Photophobia, Vision change ENT: Reports: As per HPI. Denies: Congestion, Dental pain, Ear pain, Epistaxis, Hearing loss, Throat pain Respiratory: Reports: As per HPI. Denies: Cough, Dyspnea, Hemoptysis, Stridor, Wheezes Cardiovascular: Reports: As per HPI. Denies: Arrhythmia, Chest pain, Dyspnea on exertion, Edema, Murmurs, Orthopnea, Palpitations, Paroxysmal nocturnal dyspnea, Rheumatic Fever, Syncope Endocrine: Reports: As per HPI. Denies: Fatigue, Heat or cold intolerance, Polydipsia, Polyuria Gastrointestinal: Reports: As per HPI. Denies: Abdominal pain, Constipation, Diarrhea, Hematemesis, Hematochezia, Melena, Nausea, Vomiting Genitourinary: Reports: As per HPI. Denies: Abnormal menses, Discharge, Dyspareunia, Dysuria, Frequency, Hematuria, Incontinence, Retention, Urgency Musculoskeletal: Reports: As per HPI. Denies: Arthralgia, Back pain, Gout, Joint swelling, Myalgia, Neck pain Skin: Reports: As per HPI. Denies: Bruising, Change in color, Change in hair/nails, Lesions, Pruritus, Rash Neurological: Reports: As per HPI. Denies: Abnormal gait, Confusion, Headache, Numbness, Paresthesias, Seizure, Tingling, Tremors, Vertigo, Weakness Psychiatric: Reports: As per HPI. Denies: Anxiety, Auditory hallucinations, Depression, Homicidal thoughts, Suicidal thoughts, Visual hallucinations Hematological/Lymphatic: Reports: As per HPI. Denies: Anemia, Blood Clots, Easy bleeding, Easy bruising, Swollen glands Past Medical History - SOCIAL HISTORY Smoking Status: Former smoker Alcohol Use: None Drug Use: Heavy Drug Use Detail:: Other - RESPIRATORY Hx Respiratory Disorders: Yes Hx Asthma: Yes (as a child) - CARDIOVASCULAR Hx Cardio Disorders: No - NEURO Hx Neuro Disorders: No - GI Hx GI Disorders: No Hx Celiac Disease: No (states misdiagnosed) - Hx Genitourinary Disorders: Yes Hx UTI: Yes - ENDOCRINE Hx Endocrine Disorders: No - MUSCULOSKELETAL Hx Musculoskeletal Disorders: No - PSYCH Hx Psych Problems: Yes Hx Anxiety: Yes - HEMATOLOGY/ONCOLOGY Hx Hematology/Oncology Disorders: Yes Hx Anemia: Yes Family Medical History Any Significant Family History?: No Hx Cancer: Grandparents Hx Diabetes: Father, Brother/Sister, Grandparents Hx Heart Disease: Grandparents Physical Exam - General General Appearance: Alert, Oriented x3, Cooperative, No acute distress, Other (tearful, clearing throat but no voice changes, no stridor, no drooling) - Head Head exam: Normal inspection - Eye Eye exam: Normal appearance, PERRL, EOMI. negative: Conjunctival injection, Nystagmus Pupils: Normal accommodation - ENT ENT exam: Normal exam, Mucous membranes moist, Normal external ear exam, Normal orophraynx, TM's normal bilaterally Ear exam: Normal external inspection. negative: External canal tenderness Nasal Exam: Normal inspection. negative: Discharge, Sinus tenderness Mouth exam: Normal external inspection, Tongue normal. negative: Muffled voice, Trismus Teeth exam: Normal inspection. negative: Dental caries Throat exam: Normal inspection. negative: Tonsillar erythema, Tonsillomegaly, Tonsillar exudate - Neck Neck exam: Normal inspection, Full ROM. negative: Lymphadenopathy, Meningismus, Tenderness - Respiratory Respiratory exam: Normal lung sounds bilaterally. negative: Accessory muscle use, Decreased breath sounds, Prolonged expiratory, Rales, Respiratory distress, Rhonchi, Stridor, Wheezes - Cardiovascular Cardiovascular Exam: Regular rate, Normal rhythm, Normal heart sounds - GI/Abdominal GI/Abdominal exam: Soft, Normal bowel sounds. negative: Tenderness - Rectal Rectal exam: Deferred - exam: Deferred - Extremities Extremities exam: Normal inspection, Full ROM, Normal capillary refill. negative: Calf tenderness, Pedal edema, Tenderness - Back Back exam: Reports: Normal inspection, Full ROM. Denies: Muscle spasm, Rash noted, Tenderness - Neurological Neurological exam: Alert, Normal gait, Oriented X3, Reflexes normal - Psychiatric Psychiatric exam: Normal affect, Normal mood - Skin Skin exam: Dry, Intact, Normal color, Warm. negative: Rash, Urticaria Course Vital Signs 06/22/19 05:58 Temperature 98.1 F Pulse Rate [ 74 Left] Respiratory 16 Rate Blood Pressure 131/85 [Left] Pulse Ox 100 Medical Decision Making - Management Options MDM Management: No Additional Work-up Planned Disposition Disposition: Discharge Clinical Impression: Allergic reaction caused by a drug Qualifiers: Encounter type: initial encounter Qualified Code(s): T78.40XA - Allergy, unspecified, initial encounter Disposition: Home, Self-Care Condition: (1) Good Additional Instructions: Discontinue use of CBD oil. Take your benadryl 50 mg when you get home and sleep this morning. Take prednisone taper as directed. Prescriptions: Prednisone [Prednisone 20Mg] 20 mg PO DAILY #7 tab Quality - Quality Measures Quality Measures: N/A - Blood Pressure Screening Does Patient Have Any of the Following: No Blood Pressure Classification: Pre-Hypertensive BP Reading Systolic Measurement: 131 Diastolic Measurement: 85 Screening for High Blood Pressure: < Pre-Hypertensive BP, F/U Documented > [G8950] Pre-Hypertensive Follow-up Interventions: Follow-up with rescreen every year., Lifestyle modifications., Referral to alternative/primary care provider. Lifestyle Modification: Weight Reduction, Dietary Approaches to Stop Hypertension (DASH) Eating Plan, Dietary Sodium Restriction, Increased Physical Activity, Moderation in alcohol (ETOH) consumption
[2019-06-22] MEDS ORDERED: METHYLPREDNISOLONE PF 125MG/VIAL IM ONE (06:41)
== END 2019-06-22 06:57 | disposition home or self-care (01) ==
LOC: ER 05:46
DX: T40.7X5A Adverse effect of cannabis (derivatives), initial encounter (principal); R00.0 Tachycardia, unspecified
CPT/HCPCS: 96372; 99284; J2930

== ENCOUNTER 2019-06-23 12:38 | Emergency (ER) | payer MEDICAID ==
--- NOTE | 2019-06-23 13:11 | Emergency Department Record ---
History of Present Illness - General Chief Complaint: Neck Injury/Pain Stated Complaint: STIFF NECK/SORE TO TOUCH,SORE THROAT Time Seen by Provider: 06/23/19 12:40 Source: Patient Mode of Arrival: Ambulatory Limitations: No limitations - History of Present Illness Initial Comments: The patient is here due to worsening anterior neck pain and persistent fatigue. The patient has an extensive hx of neck glandular complaints and believes she was having an allergic rxn to CPD oil 2 days ago. She was seen in the ER here yesterday and started on oral steroids. Now she is feeling no better and is still having persistent fatigue. She denies any fever, chills, SOUZA, SOB, CHAR, or voice changes. The patient has been swallowing normally. MD Complaint: Neck pain Onset/Timin -: Days(s) Place: Home Radiation: Left lateral, Right lateral, Upper back Severity: Moderate Severity scale (1-10): 7 Quality: Aching Consistency: Constant, Intermittent Improves With: None Worsens With: Movement of extremity, Movement of neck, Swallowing - Related Data Previous Rx's Medication Instructions Recorded Prednisone [Prednisone 20Mg] 20 mg PO DAILY #7 tab 06/22/19 Allergies Allergy/AdvReac Type Severity Reaction Status Date / Time cephalexin monohydrate Allergy Mild hives Verified 06/23/19 12:50 [From Keflex] amoxicillin Allergy HIVES Verified 06/23/19 12:50 dicyclomine HCl [From Bentyl] Allergy HIVES Verified 06/23/19 12:50 Iodinated Contrast Media Allergy PT UNSURE Verified 06/23/19 12:50 OF REACTION Penicillins Allergy HIVES Verified 06/23/19 12:50 ferrous sulfate AdvReac HIVES Verified 06/23/19 12:50 Travel Screening - Travel/Exposure Within Last 30 Days Have you traveled within the last 30 days?: No - Travel/Exposure Within Last Year Have you traveled outside the [place] in the last year?: No - Additonal Travel Details Have you been exposed to anyone with a communicable illness?: No - Travel Symptoms Symptom Screening: None Review of Systems Constitutional: Denies: Chills, Fever Eyes: Denies: Eye discharge ENT: Denies: Congestion Respiratory: Denies: Cough, Dyspnea Cardiovascular: Denies: Chest pain Past Medical History - SOCIAL HISTORY Smoking Status: Former smoker Alcohol Use: None Drug Use: None - RESPIRATORY Hx Respiratory Disorders: Yes Hx Asthma: Yes (as a child) - CARDIOVASCULAR Hx Cardio Disorders: No - NEURO Hx Neuro Disorders: No - GI Hx GI Disorders: No Hx Celiac Disease: No (states misdiagnosed) - Hx Genitourinary Disorders: Yes Hx UTI: Yes - ENDOCRINE Hx Endocrine Disorders: No - MUSCULOSKELETAL Hx Musculoskeletal Disorders: No - PSYCH Hx Psych Problems: Yes Hx Anxiety: Yes - HEMATOLOGY/ONCOLOGY Hx Hematology/Oncology Disorders: Yes Hx Anemia: Yes Family Medical History Any Significant Family History?: Yes Hx Cancer: Grandparents Hx Diabetes: Father, Brother/Sister, Grandparents Hx Heart Disease: Grandparents Physical Exam - General General Appearance: Alert, Oriented x3, Cooperative, No acute distress - Head Head exam: Atraumatic, Normocephalic, Normal inspection Image of Face/Head: 1 - Area of complaint of pain and tenderness. - Eye Eye exam: Normal appearance, PERRL, EOMI - ENT ENT exam: Normal exam, Mucous membranes moist, Normal external ear exam, Normal orophraynx, TM's normal bilaterally Throat exam: Normal inspection. negative: Tonsillar erythema, Tonsillar exudate - Neck Neck exam: Normal inspection (there is no erythema or edema appreciated.), Full ROM, Tenderness (There is diffuse anterior neck tenderness but the area appears very normal to palpation.). negative: Lymphadenopathy, Meningismus (the neck is very supple.), Thyromegaly - Respiratory Respiratory exam: Normal lung sounds bilaterally. negative: Chest wall tenderness, Respiratory distress - Cardiovascular Cardiovascular Exam: Regular rate, Normal rhythm, Normal heart sounds. negative: Diastolic murmur - GI/Abdominal GI/Abdominal exam: Soft, Normal bowel sounds. negative: Tenderness - Extremities Extremities exam: Normal inspection, Full ROM, Normal capillary refill. negative: Tenderness - Neurological Neurological exam: Alert. negative: Motor sensory deficit - Skin Skin exam: negative: Rash Course Vital Signs 06/23/19 12:42 Temperature 97.7 F Pulse Rate 76 Respiratory 18 Rate Blood Pressure 125/84 Pulse Ox 100 - Reevaluation(s) Reevaluation #1: The patient is doing very well at this time. I did discuss the lab work being normal along with the xray. I do believe the patient's mild WBC elevation is due to the oral steroids. She is to continue her medicines and see her PCP this week for recheck. 06/23/19 14:14 Medical Decision Making - Data Complexity MDM Data: X-Ray Ordered and/or Reviewed - Lab Data Result diagrams: 06/23/19 13:48 06/23/19 13:48 - Radiology Data Radiology results: Report reviewed (ST Neck: Neg.) Disposition Disposition: Discharge Clinical Impression: Allergic reaction caused by a drug Qualifiers: Encounter type: subsequent encounter Qualified Code(s): T78.40XD - Allergy, unspecified, subsequent encounter Disposition: Home, Self-Care Condition: (2) Stable Instructions: Neck Pain (ED) Additional Instructions: Please continue your regular medicines and please see your doctor this week for recheck. Return to the ER for any worsening symptoms. Forms: Patient Portal Access Time of Disposition: 14:13 Quality - Quality Measures Quality Measures: N/A - Blood Pressure Screening View Details: Yes Does Patient Have Any of the Following: No Blood Pressure Classification: Pre-Hypertensive BP Reading Systolic Measurement: 125 Diastolic Measurement: 84 Screening for High Blood Pressure: < Pre-Hypertensive BP, F/U Documented > [G8950] Pre-Hypertensive Follow-up Interventions: Referral to alternative/primary care provider.
[2019-06-23 13:53] LABS: ABSOLUTE NEUTROPHIL COUNT 10.84; BASO % 0.1 % (0-6); EOS % 0.3 % (0-6); GRAN % 73.4 % (47-80); HEMATOCRIT 39.3 % (35.0-47.0); HEMOGLOBIN 12.8 gm/dl (11.6-16.0); LYMPH % 20.4 % (16-45); MEAN CELL VOLUME 95.9 fl (81-97); MEAN CORPUSCULAR HEMOGLOBIN 31.2 pg (27-33); MEAN CORPUSCULAR HGB CONC 32.6 g/dl (32-36); MEAN PLATELET VOLUME 8.8 fl (7.4-10.4); MONO % 5.8 % (0-9); PLATELET COUNT 347 K/uL (130-400); WHITE BLOOD COUNT W/O DIFF 14.8 K/uL (4.2-12.2)
[2019-06-23 14:03] LABS: BLOOD UREA NITROGEN 14 mg/dL (6-20); CREATININE 0.7 mg/dL (0.5-0.9); EST GLOMERULAR FILTRATION RATE > 60 mL/min
[2019-06-23 14:04] LABS: TOTAL PROTEIN 6.6 g/dL (6.6-8.7)
[2019-06-23 14:06] LABS: GLUCOSE,RANDOM 108 mg/dL (74-109)
[2019-06-23 14:08] LABS: ALB/GLOB RATIO 1.8 (1.1-1.8); ALBUMIN 4.2 g/dL (4.0-5.0); ALKALINE PHOSPHATASE 32 U/L (35-104); ALT/SGPT 12 U/L (<33); AST/SGOT 17 U/L (10.0-35.0); C-REACTIVE PROTEIN 0.03 mg/dL (<0.5)
--- NOTE | 2019-06-24 15:01 | RADIOLOGY REPORT ---
EXAM: NECK, SOFT TISSUE HISTORY: NECK PAIN. SWELLING. POSSIBLE ALLERGIC REACTION TO MEDICATION. TECHNIQUE: Two views of the neck soft tissues were obtained. Comparison: None. FINDINGS: No precervical soft tissue swelling is seen. No radiopaque foreign body. Reversal of normal cervical lordosis with mild mild kyphosis centered at the C5 level. IMPRESSION: UNREMARKABLE NECK SOFT TISSUE RADIOGRAPHS. JOB NUMBER: [id number] MTDD
== END 2019-06-23 14:27 | disposition home or self-care (01) ==
LOC: ER 12:38
DX: T40.7X5A Adverse effect of cannabis (derivatives), initial encounter (principal); M54.2 Cervicalgia; R53.83 Other fatigue; D72.829 Elevated white blood cell count, unspecified; Y92.009 Unspecified place in unspecified non-institutional (private) residence as the place of occurrence of the external cause; Z87.891 Personal history of nicotine dependence
CPT/HCPCS: 70360; 80053; 85025; 86140; 99284

== ENCOUNTER 2019-07-14 00:22 | Emergency (ER) | payer MEDICAID ==
[2019-07-14] MEDS ORDERED: DEXAMETHASONE SOD PHOSPHATE 10MG/ML VIAL PO ONE (00:27)
--- NOTE | 2019-07-14 00:34 | Emergency Department Record ---
History of Present Illness - General Chief complaint: Allergic Reaction Stated complaint: FACE SWOLLEN, REACTION Time Seen by Provider: 07/14/19 00:22 Source: Patient Mode of Arrival: Ambulatory Limitations: No limitations - History of Present Illness Initial Comments: 33 yo female presents to ED for evaluation of "facial swelling that began earlier today, and my tongue felt funny". Patient reports intermittent reactions previously with similar symptoms, has take Prednisone before but reports Prednisone also causes swelling. Patient denies difficulty in breathing, swelling under the tongue, wheezing, or rash symptoms on examination. Patient reports that her PCP is "trying to figure out what type of autoimmune disease I have". Patient denies any new medications, foods, or facial cleansers. MD Complaint: Facial swelling Onset/Timin -: Days(s) Exposure: Unknown Severity: Mild Treatment Prior to Arrival: None Previous Allergy History: Other - Related Data Allergies Allergy/AdvReac Type Severity Reaction Status Date / Time cephalexin monohydrate Allergy Severe hives Verified 07/14/19 00:30 [From Keflex] amoxicillin Allergy HIVES Verified 07/14/19 00:30 cefdinir Allergy hives Verified 07/14/19 00:30 dicyclomine HCl [From Bentyl] Allergy HIVES Verified 07/14/19 00:30 Iodinated Contrast Media Allergy PT UNSURE Verified 07/14/19 00:30 OF REACTION Penicillins Allergy HIVES Verified 07/14/19 00:30 ferrous sulfate AdvReac HIVES Verified 07/14/19 00:30 Review of Systems Constitutional: Denies: Chills, Fever, Malaise, Night sweats Eyes: Denies: Eye discharge, Eye pain ENT: Reports: Other ("Facial swelling"). Denies: Congestion, Ear pain, Epistaxis Respiratory: Denies: Cough, Dyspnea Cardiovascular: Denies: Chest pain, Dyspnea on exertion Endocrine: Denies: Fatigue, Heat or cold intolerance Gastrointestinal: Denies: Abdominal pain, Nausea, Vomiting Genitourinary: Denies: Incontinence, Retention Musculoskeletal: Denies: Arthralgia, Back pain Skin: Denies: Bruising, Change in color Neurological: Denies: Abnormal gait, Confusion, Headache, Seizure Psychiatric: Denies: Anxiety Hematological/Lymphatic: Denies: Anemia, Blood Clots Past Medical History - SOCIAL HISTORY Smoking Status: Former smoker Drug Use: None - RESPIRATORY Hx Respiratory Disorders: Yes Hx Asthma: Yes (as a child) - CARDIOVASCULAR Hx Cardio Disorders: No - NEURO Hx Neuro Disorders: No - GI Hx GI Disorders: No Hx Celiac Disease: No (states misdiagnosed) - Hx Genitourinary Disorders: Yes Hx UTI: Yes - ENDOCRINE Hx Endocrine Disorders: No - MUSCULOSKELETAL Hx Musculoskeletal Disorders: No - PSYCH Hx Psych Problems: Yes Hx Anxiety: Yes - HEMATOLOGY/ONCOLOGY Hx Hematology/Oncology Disorders: Yes Hx Anemia: Yes Family Medical History Hx Cancer: Grandparents Hx Diabetes: Father, Brother/Sister, Grandparents Hx Heart Disease: Grandparents Physical Exam - General General Appearance: Alert, Oriented x3, Cooperative, No acute distress Limitations: No limitations - Head Head exam: Atraumatic, Normocephalic, Normal inspection Head exam detail: negative: Abrasion, Contusion, Ingram's sign, General tenderness, Hematoma, Laceration - Eye Eye exam: Normal appearance. negative: Conjunctival injection, Periorbital swelling, Periorbital tenderness, Scleral icterus - ENT Ear exam: negative: Auricular hematoma, Auricular trauma Nasal Exam: negative: Active bleeding, Discharge, Dried blood, Foreign body Mouth exam: negative: Drooling, Laceration, Muffled voice, Tongue elevation - Neck Neck exam: Normal inspection. negative: Meningismus, Tenderness - Respiratory Respiratory exam: Normal lung sounds bilaterally. negative: Rales, Respiratory distress, Rhonchi, Stridor - Cardiovascular Cardiovascular Exam: Regular rate, Normal rhythm, Normal heart sounds - GI/Abdominal GI/Abdominal exam: Soft. negative: Rebound, Rigid, Tenderness - Rectal Rectal exam: Deferred - exam: Deferred - Extremities Extremities exam: Normal inspection. negative: Pedal edema, Tenderness - Back Back exam: Denies: CVA tenderness (R), CVA tenderness (L) - Neurological Neurological exam: Alert, Normal gait, Oriented X3 - Psychiatric Psychiatric exam: Flat affect, Normal mood - Skin Skin exam: Normal color. negative: Abrasion Type of lesion: negative: abrasion Course - Reevaluation(s) Reevaluation #1: 07/14/19 00:34 Patient was seen and examined, no evidence for anaphylactic reaction. Patient has no hives on examination, no wheezing, no tongue swelling, or evidence for Alex's angina on examination. Patient has no clear evidence for acute reaction on examination. Will treat with Decadron, patient is otherwise well appearing and stable for discharge at this time. Disposition Disposition: Discharge Clinical Impression: Facial swelling Disposition: Home, Self-Care Condition: (2) Stable Instructions: Allergies (ED) Additional Instructions: Return to ED if your symptoms worsen or if you have any concerns. Follow-up with your family doctor in 3-5 days as directed. Forms: Patient Portal Access Time of Disposition: 00:34 Quality - Quality Measures Quality Measures: N/A - Blood Pressure Screening Does Patient Have Any of the Following: No Blood Pressure Classification: Pre-Hypertensive BP Reading Systolic Measurement: 134 Diastolic Measurement: 88 Screening for High Blood Pressure: < Pre-Hypertensive BP, F/U Documented > [G8950] Pre-Hypertensive Follow-up Interventions: Referral to alternative/primary care provider.
== END 2019-07-14 00:38 | disposition home or self-care (01) ==
LOC: ER 00:22
DX: R22.0 Localized swelling, mass and lump, head (principal)
CPT/HCPCS: 99283 ×2; J1100

== ENCOUNTER 2019-08-22 09:10 | Day surgery (SDC) | payer MEDICAID ==
[2019-08-22] MEDS ORDERED: PROPOFOL 10 MG/ML VIAL IV ONE (09:11)
[2019-08-22] MEDS ORDERED: FENTANYL PF 100MCG/2ML VIAL IV ONE (09:11)
[2019-08-22] MEDS ORDERED: LIDOCAINE 2% MDV (20MG/ML) 20ML VIAL IV ONE (09:11)
--- NOTE | 2019-08-22 14:20 | Operative Note ---
OPERATION: ESOPHAGOGASTRODUODENOSCOPY with biopsy. PREOPERATIVE DIAGNOSIS: Left upper quadrant pain and possible gluten intolerance. POSTOPERATIVE DIAGNOSIS: Normal upper endoscopy, rule out occult H pylori, rule out occult celiac. PROCEDURE: After informed consent was obtained from the patient, she was placed in the left lateral decubitus position in the endoscopy suite, sedated and monitored by the department of anesthesia. A well-lubricated [id number] gastroscope was placed in the posterior oropharynx under direct visualization and passed to the proximal esophagus. The endoscope was advanced through the proximal, mid, and distal esophagus. The GE junction was unremarkable. The esophagus in its length was unremarkable. The gastric body, antrum, pylorus, duodenal bulb, and sweep were unrevealing. No obvious scalloping or just flattening of the folds of the duodenum were evident. Random biopsies, however, obtained to rule out occult celiac. Gastric biopsies were also obtained to rule out H pylori. J-turn views of the proximal stomach were unremarkable. The endoscope was straightened. The antrum again was inspected, as was the gastric body and incisura. All were unremarkable. The endoscope was removed from the patient with no new findings noted. RECOMMENDATIONS: We will await the results of tissue histology. In addition, I had encouraged the patient to have a FIT test; however, this has not been completed. I would recommend she do this, particularly in light of her history of iron deficiency anemia. If her FIT is positive, she would require colonoscopy. As always, thank you for allowing me to participate in the healthcare of your patients. SHENG
== END 2019-08-22 10:46 | disposition home or self-care (01) ==
LOC: HOP 09:10
PROVIDERS: ATTEND Internal Medicine Gastroenterology
DX: D50.9 Iron deficiency anemia, unspecified (principal); R10.12 Left upper quadrant pain
CPT/HCPCS: 81025

== ENCOUNTER 2019-08-29 18:10 | Emergency (ER) | payer MEDICAID ==
[2019-08-29] MEDS ORDERED: KETOROLAC 30 MG/ML VIAL IVP ONE (18:39)
--- NOTE | 2019-08-29 18:43 | Emergency Department Record ---
History of Present Illness - General Chief Complaint: Back Pain/Injury Stated Complaint: BACK PAIN,ABD PAIN AND FEVER Time Seen by Provider: 08/29/19 18:17 Source: Patient Mode of Arrival: Ambulatory Limitations: No limitations - History of Present Illness Initial Comments: 33 yo female presents to ED for evaluation of left-sided flank pain symptoms jason t began this morning. Patient was seen by her PCP this AM for her symptoms, reports blood work was drawn for evaluation of possible RA/Lupus and other inflammatory conditions. Patient reports associated "fever" this afternoon of 99.1 today as well. Patient denies urinary symptoms, abdominal pain, vomiting, diarrhea, or cough symptoms. MD Complaint: Back pain Onset/Timin -: Days(s) Place: Home Improves With: None Worsens With: None Context: Unknown Associated Symptoms: Abdominal pain, Other - Related Data Previous Rx's Medication Instructions Recorded Ibuprofen [Motrin 600Mg] 600 mg PO Q6H PRN #30 tablet 08/29/19 Allergies Allergy/AdvReac Type Severity Reaction Status Date / Time cephalexin monohydrate Allergy Severe hives Verified 08/29/19 18:27 [From Keflex] amoxicillin Allergy HIVES Verified 08/29/19 18:27 cefdinir Allergy hives Verified 08/29/19 18:27 dicyclomine HCl [From Bentyl] Allergy HIVES Verified 08/29/19 18:27 Iodinated Contrast Media Allergy PT UNSURE Verified 08/29/19 18:27 OF REACTION Penicillins Allergy HIVES Verified 08/29/19 18:27 diphenhydramine AdvReac HYPERSENSIT Verified 08/29/19 18:27 [From Benadryl] IVITY ferrous sulfate AdvReac HIVES Verified 08/29/19 18:27 Travel Screening - Travel/Exposure Within Last 30 Days Have you traveled within the last 30 days?: No - Travel/Exposure Within Last Year Have you traveled outside the [place] in the last year?: No - Additonal Travel Details Have you been exposed to anyone with a communicable illness?: No Review of Systems Constitutional: Reports: Fever. Denies: Chills, Malaise, Night sweats Eyes: Denies: Eye discharge, Eye pain ENT: Denies: Congestion, Ear pain, Epistaxis Respiratory: Denies: Cough, Dyspnea Cardiovascular: Denies: Chest pain, Dyspnea on exertion Endocrine: Denies: Fatigue, Heat or cold intolerance Gastrointestinal: Denies: Abdominal pain, Constipation, Nausea, Vomiting Genitourinary: Denies: Dysuria, Frequency, Incontinence, Retention Musculoskeletal: Reports: Back pain, Myalgia. Denies: Arthralgia Skin: Denies: Bruising, Change in color Neurological: Denies: Abnormal gait, Confusion, Headache, Tingling, Tremors Psychiatric: Denies: Anxiety Hematological/Lymphatic: Denies: Anemia, Blood Clots Past Medical History - SOCIAL HISTORY Smoking Status: Former smoker Alcohol Use: None Drug Use: None - RESPIRATORY Hx Respiratory Disorders: Yes Hx Asthma: Yes (as a child) - CARDIOVASCULAR Hx Cardio Disorders: No - NEURO Hx Neuro Disorders: No - GI Hx GI Disorders: No Hx Celiac Disease: No (states misdiagnosed) - Hx Genitourinary Disorders: Yes Hx UTI: Yes - ENDOCRINE Hx Endocrine Disorders: No - MUSCULOSKELETAL Hx Musculoskeletal Disorders: No - PSYCH Hx Psych Problems: Yes Hx Anxiety: Yes Hx Depression: Yes - HEMATOLOGY/ONCOLOGY Hx Hematology/Oncology Disorders: Yes Hx Anemia: Yes Family Medical History Any Significant Family History?: No Hx Cancer: Grandparents Hx Diabetes: Father, Brother/Sister, Grandparents Hx Heart Disease: Grandparents Physical Exam - General General Appearance: Alert, Oriented x3, Cooperative, Mild distress, Anxious Limitations: No limitations - Head Head exam: Atraumatic, Normocephalic, Normal inspection Head exam detail: negative: Abrasion, Contusion, Ingram's sign, General tenderness, Hematoma, Laceration - Eye Eye exam: Normal appearance. negative: Conjunctival injection, Periorbital swelling, Periorbital tenderness, Scleral icterus Pupils: negative: Normal accommodation - ENT Ear exam: negative: Auricular hematoma, Auricular trauma Nasal Exam: negative: Active bleeding, Discharge, Dried blood, Foreign body, Sinus tenderness Mouth exam: negative: Drooling, Laceration, Muffled voice, Tongue elevation - Neck Neck exam: Normal inspection. negative: Meningismus, Tenderness - Respiratory Respiratory exam: Normal lung sounds bilaterally. negative: Respiratory distress, Rhonchi, Stridor, Wheezes - Cardiovascular Cardiovascular Exam: Regular rate, Normal rhythm, Normal heart sounds - GI/Abdominal GI/Abdominal exam: Soft. negative: Distended, Rebound, Rigid, Tenderness - Rectal Rectal exam: Deferred - exam: Deferred - Extremities Extremities exam: Normal inspection. negative: Pedal edema, Tenderness - Back Back exam: Reports: CVA tenderness (L). Denies: CVA tenderness (R) - Neurological Neurological exam: Alert, Normal gait, Oriented X3 - Psychiatric Psychiatric exam: Normal affect, Normal mood - Skin Skin exam: Normal color. negative: Abrasion Type of lesion: negative: abrasion Course Vital Signs 08/29/19 18:15 Temperature 98.6 F Pulse Rate 66 Respiratory 16 Rate Blood Pressure 140/83 Pulse Ox 100 - Reevaluation(s) Reevaluation #1: 08/29/19 19:30 Laboratory studies were reviewed and appear grossly unremarkable for an acute process. Patient was updated on all results, appears to be resting more comfortably on re-examination. Patient appears stable for discharge at this time. Medical Decision Making - Lab Data Result diagrams: 08/29/19 18:44 08/29/19 18:44 Disposition Disposition: Discharge Clinical Impression: Left flank pain Disposition: Home, Self-Care Condition: (2) Stable Instructions: Flank Pain (ED) Additional Instructions: Return to ED if your symptoms worsen or if you have any concerns. Motrin 600 mg as directed. Follow-up with Dr. Stewart in 3-5 days as directed. Prescriptions: Ibuprofen [Motrin 600Mg] 600 mg PO Q6H PRN #30 tablet PRN Reason: Pain - Moderate (5-7) Forms: Patient Portal Access Time of Disposition: 19:31 Quality - Quality Measures Quality Measures: N/A - Blood Pressure Screening Does Patient Have Any of the Following: No Blood Pressure Classification: Pre-Hypertensive BP Reading Systolic Measurement: 140 Diastolic Measurement: 83 Screening for High Blood Pressure: < Pre-Hypertensive BP, F/U Documented > [G8950] Pre-Hypertensive Follow-up Interventions: Referral to alternative/primary care provider.
[2019-08-29] MEDS ORDERED: 0.9 % SODIUM CHLORIDE 1000ML 500 ML IV SCH (18:45)
[2019-08-29 19:02] LABS: URINE APPEARANCE CLEAR; URINE BILIRUBIN NEGATIVE (NEGATIVE); URINE BLOOD NEGATIVE (NEGATIVE); URINE COLOR YELLOW; URINE GLUCOSE (UA) NEGATIVE (NEGATIVE); URINE KETONE NEGATIVE (NEGATIVE); URINE LEUKOCYTE ESTERASE NEGATIVE (NEGATIVE); URINE NITRITE NEGATIVE (NEGATIVE); URINE PROTEIN NEGATIVE (NEGATIVE); URINE UROBILINOGEN 0.2 E.U./dL (0.20 - 1.00)
[2019-08-29 19:02] LABS: ABSOLUTE NEUTROPHIL COUNT 3.66; BASO % 0.5 % (0-6); EOS % 4.4 % (0-6); GRAN % 48.7 % (47-80); HEMOGLOBIN 13.4 gm/dl (11.6-16.0); LYMPH % 37.8 % (16-45); MEAN CELL VOLUME 93.5 fl (81-97); MEAN CORPUSCULAR HEMOGLOBIN 31.3 pg (27-33); MEAN CORPUSCULAR HGB CONC 33.5 g/dl (32-36); MONO % 8.6 % (0-9); PLATELET COUNT 329 K/uL (130-400); RED BLOOD COUNT 4.28 M/uL (3.80-5.40); RED CELL DISTRIBUTION WIDTH 12.3 % (11.5-14.5); WHITE BLOOD COUNT W/O DIFF 7.5 K/uL (4.2-12.2)
[2019-08-29 19:10] LABS: BLOOD UREA NITROGEN 14 mg/dL (6-20)
[2019-08-29 19:11] LABS: CREATININE 0.6 mg/dL (0.5-0.9); EST GLOMERULAR FILTRATION RATE > 60 mL/min; TOTAL PROTEIN 7.7 g/dL (6.6-8.7)
[2019-08-29 19:13] LABS: GLUCOSE,RANDOM 109 mg/dL (74-109)
[2019-08-29 19:16] LABS: ALB/GLOB RATIO 1.6 (1.1-1.8); ALBUMIN 4.7 g/dL (4.0-5.0); ALKALINE PHOSPHATASE 35 U/L (35-104); ALT/SGPT 22 U/L (<33); AST/SGOT 23 U/L (10.0-35.0)
[2019-08-29 19:22] LABS: INFLUENZA A NEGATIVE (NEGATIVE); INFLUENZA B NEGATIVE (NEGATIVE)
== END 2019-08-29 19:46 | disposition home or self-care (01) ==
LOC: ER 18:10
DX: R10.9 Unspecified abdominal pain (principal); M54.9 Dorsalgia, unspecified; R50.9 Fever, unspecified; M13.0 Polyarthritis, unspecified
CPT/HCPCS: 80053; 81003; 85025; 85651; 86140; 87400; 99283; J1885; J7030

== ENCOUNTER 2019-10-23 18:58 | Emergency (ER) | payer MEDICAID ==
--- NOTE | 2019-10-23 19:04 | Emergency Department Record ---
History of Present Illness - General Chief Complaint: General Stated Complaint: MIXED 2 MEDS, UNSURE OF OUTCOME Time Seen by Provider: 10/23/19 19:02 Source: Patient Mode of Arrival: Ambulatory Limitations: No limitations - History of Present Illness Initial comments: 34 yo female presents to ED after taking Benadryl approximately 10 minutes ago, Flexeril 45 minutes ago for treatment of low back pain symptoms and "dermatitis". Patient denies symptoms at this time, but was concerned about the interaction. Patient reviewed the interaction on Google and became concerned. Onset/Timin -: Hour(s) Radiation: Non-Radiating Improves with: None Worsens with: None Associated Symptoms: Denies other symptoms Treatments Prior to Arrival: None - Tiffanie Coma Scale Eye Response: (4) Open spontaneously Motor Response: (6) Obeys commands Verbal Response: (5) Oriented Tiffanie Total: 15 - Related Data Previous Rx's Medication Instructions Recorded Ibuprofen [Motrin 600Mg] 600 mg PO Q6H PRN #30 tablet 08/29/19 Allergies Allergy/AdvReac Type Severity Reaction Status Date / Time cephalexin monohydrate Allergy Severe hives Verified 10/23/19 15:56 [From Keflex] amoxicillin Allergy HIVES Verified 10/23/19 15:56 cefdinir Allergy hives Verified 10/23/19 15:56 dicyclomine HCl [From Bentyl] Allergy HIVES Verified 10/23/19 15:56 diphenhydramine HCl Allergy HIVES Verified 10/23/19 15:56 [From Benadryl] Iodinated Contrast Media Allergy PT UNSURE Verified 10/23/19 15:56 OF REACTION Penicillins Allergy HIVES Verified 10/23/19 15:56 diphenhydramine AdvReac HYPERSENSIT Unverified 10/23/19 15:56 [From Benadryl] IVITY ferrous sulfate AdvReac HIVES Verified 10/23/19 15:56 Review of Systems Constitutional: Denies: Chills, Fever, Malaise, Night sweats Eyes: Denies: Eye discharge, Eye pain ENT: Denies: Congestion, Ear pain, Epistaxis Respiratory: Denies: Cough, Dyspnea Cardiovascular: Denies: Chest pain, Dyspnea on exertion Endocrine: Denies: Fatigue, Heat or cold intolerance Gastrointestinal: Denies: Abdominal pain, Nausea, Vomiting Genitourinary: Denies: Incontinence, Retention Musculoskeletal: Denies: Arthralgia, Back pain Skin: Denies: Bruising, Change in color Neurological: Denies: Abnormal gait, Confusion, Headache, Seizure Psychiatric: Denies: Anxiety Hematological/Lymphatic: Denies: Anemia, Blood Clots Past Medical History - SOCIAL HISTORY Smoking Status: Former smoker Drug Use: None - RESPIRATORY Hx Respiratory Disorders: Yes Hx Asthma: Yes (as a child) - CARDIOVASCULAR Hx Cardio Disorders: No - NEURO Hx Neuro Disorders: No - GI Hx GI Disorders: No Hx Celiac Disease: No (states misdiagnosed) - Hx Genitourinary Disorders: Yes Hx UTI: Yes - ENDOCRINE Hx Endocrine Disorders: No - MUSCULOSKELETAL Hx Musculoskeletal Disorders: No - PSYCH Hx Psych Problems: Yes Hx Anxiety: Yes Hx Depression: Yes - HEMATOLOGY/ONCOLOGY Hx Hematology/Oncology Disorders: Yes Hx Anemia: Yes Family Medical History Hx Cancer: Grandparents Hx Diabetes: Father, Brother/Sister, Grandparents Hx Heart Disease: Grandparents Physical Exam - General General Appearance: Alert, Oriented x3, Cooperative, No acute distress Limitations: No limitations - Head Head exam: Atraumatic, Normocephalic, Normal inspection Head exam detail: negative: Abrasion, Contusion, Ingram's sign, General tenderness, Hematoma, Laceration - Eye Eye exam: Normal appearance. negative: Conjunctival injection, Periorbital swelling, Periorbital tenderness, Scleral icterus - ENT Ear exam: negative: Auricular hematoma, Auricular trauma Nasal Exam: negative: Active bleeding, Discharge, Dried blood, Foreign body Mouth exam: negative: Drooling, Laceration, Muffled voice, Tongue elevation - Neck Neck exam: Normal inspection. negative: Meningismus, Tenderness - Respiratory Respiratory exam: Normal lung sounds bilaterally. negative: Rales, Respiratory distress, Rhonchi, Stridor - Cardiovascular Cardiovascular Exam: Regular rate, Normal rhythm, Normal heart sounds - GI/Abdominal GI/Abdominal exam: Soft. negative: Rebound, Rigid, Tenderness - Rectal Rectal exam: Deferred - exam: Deferred - Extremities Extremities exam: Normal inspection. negative: Pedal edema, Tenderness - Back Back exam: Denies: CVA tenderness (R), CVA tenderness (L) - Neurological Neurological exam: Alert, Normal gait, Oriented X3 - Psychiatric Psychiatric exam: Anxious - Skin Skin exam: Normal color. negative: Abrasion Type of lesion: negative: abrasion Course - Reevaluation(s) Reevaluation #1: 10/23/19 19:08 Patient is currently asymptomatic. Patient was counseled that she may become drowsy this evening, encouraged her to stay home and not operate a vehicle or machinery. Patient was encouraged not to mix medications in the future. Patent appears stable for discharge at this time. Disposition Disposition: Discharge Clinical Impression: Medication adverse effect Qualifiers: Encounter type: initial encounter Qualified Code(s): T50.905A - Adverse effect of unspecified drugs, medicaments and biological substances, initial encounter Disposition: Home, Self-Care Condition: (2) Stable Additional Instructions: Return to ED if your symptoms worsen or if you have any concerns. Do not mix medications. Follow-up with your family doctor in 3-5 days as directed. Forms: Patient Portal Access Time of Disposition: 19:03 Quality - Quality Measures Quality Measures: N/A - Blood Pressure Screening Does Patient Have Any of the Following: No Blood Pressure Classification: Pre-Hypertensive BP Reading Systolic Measurement: 135 Diastolic Measurement: 75 Screening for High Blood Pressure: < Pre-Hypertensive BP, F/U Documented > [G8950] Pre-Hypertensive Follow-up Interventions: Referral to alternative/primary care provider.
== END 2019-10-23 19:20 | disposition home or self-care (01) ==
LOC: ER 18:58
DX: T45.0X5A Adverse effect of antiallergic and antiemetic drugs, initial encounter (principal); T48.1X5A Adverse effect of skeletal muscle relaxants [neuromuscular blocking agents], initial encounter; M54.5 Low back pain; L30.9 Dermatitis, unspecified; Z87.891 Personal history of nicotine dependence
CPT/HCPCS: 99282

== ENCOUNTER 2019-11-14 19:45 | Emergency (ER) | payer MEDICAID ==
--- NOTE | 2019-11-14 19:54 | Emergency Department Record ---
History of Present Illness - General Chief complaint: Bite Insect/other Stated complaint: NAUSEA AND BITES ON ARM Time Seen by Provider: 11/14/19 19:48 Source: Patient Mode of Arrival: Ambulatory Limitations: No limitations - History of Present Illness Initial comments: 34 yo female returns to the ED following evaluation by her PCP for an itchy rash to the upper extremities bilaterally. Patient reports itching symptoms, was told by her PCP to use OTC topicals for her symptoms. Patient reports (3) itchy lesions to the upper extremities, reports that her lesions are likely due to bug bites. Patient has been taking numerous antibiotics from around the house for her symptoms (gentamicin, zithromax). Patient denies difficulty in breathing, wheezing, facial or tongue swelling. MD complaint: Rash Onset/Timin -: Days(s) Hx Tetanus Toxoid Vaccination: Yes Year of Tetanus Vaccination: unknown [place] Severity: Mild Quality: Other (Itching) Consistency: Constant Improves with: None Worsens with: None Context: None Associated symptoms: Denies other symptoms Treatments Prior to Arrival: Antibiotic, Benadryl, OTC topical medication - Related Data Previous Rx's Medication Instructions Recorded Permethrin [Elimite] 60 gm TP DAILY #1 tube 11/14/19 Allergies Allergy/AdvReac Type Severity Reaction Status Date / Time cephalexin monohydrate Allergy Severe hives Verified 11/14/19 19:53 [From Keflex] amoxicillin Allergy HIVES Verified 11/14/19 19:53 cefdinir Allergy hives Verified 11/14/19 19:53 dicyclomine HCl [From Bentyl] Allergy HIVES Verified 11/14/19 19:53 diphenhydramine HCl Allergy HIVES Verified 11/14/19 19:53 [From Benadryl] Iodinated Contrast Media Allergy PT UNSURE Verified 11/14/19 19:53 OF REACTION Penicillins Allergy HIVES Verified 11/14/19 19:53 ferrous sulfate AdvReac HIVES Verified 11/14/19 19:53 Review of Systems Constitutional: Denies: Chills, Fever, Malaise, Night sweats Eyes: Denies: Eye discharge, Eye pain ENT: Denies: Congestion, Ear pain, Epistaxis Respiratory: Denies: Cough, Dyspnea Cardiovascular: Denies: Chest pain, Dyspnea on exertion Endocrine: Denies: Fatigue, Heat or cold intolerance Gastrointestinal: Denies: Abdominal pain, Nausea, Vomiting Genitourinary: Denies: Incontinence, Retention Musculoskeletal: Denies: Arthralgia, Back pain Skin: Denies: Bruising, Change in color Neurological: Denies: Abnormal gait, Confusion, Headache, Seizure Psychiatric: Denies: Anxiety Hematological/Lymphatic: Denies: Anemia, Blood Clots Past Medical History - SOCIAL HISTORY Smoking Status: Former smoker Drug Use: None - RESPIRATORY Hx Respiratory Disorders: Yes Hx Asthma: Yes (as a child) - CARDIOVASCULAR Hx Cardio Disorders: No - NEURO Hx Neuro Disorders: No - GI Hx GI Disorders: No Hx Celiac Disease: No (states misdiagnosed) - Hx Genitourinary Disorders: Yes Hx UTI: Yes - ENDOCRINE Hx Endocrine Disorders: No - MUSCULOSKELETAL Hx Musculoskeletal Disorders: No - PSYCH Hx Psych Problems: Yes Hx Anxiety: Yes Hx Depression: Yes - HEMATOLOGY/ONCOLOGY Hx Hematology/Oncology Disorders: Yes Hx Anemia: Yes Family Medical History Hx Cancer: Grandparents Hx Diabetes: Father, Brother/Sister, Grandparents Hx Heart Disease: Grandparents Physical Exam - General General Appearance: Alert, Oriented x3, Cooperative, No acute distress Limitations: No limitations - Head Head exam: Atraumatic, Normocephalic, Normal inspection Head exam detail: negative: Abrasion, Contusion, Ingram's sign, General tenderness, Hematoma, Laceration - Eye Eye exam: Normal appearance. negative: Conjunctival injection, Periorbital swelling, Periorbital tenderness, Scleral icterus - ENT Ear exam: negative: Auricular hematoma, Auricular trauma Nasal Exam: negative: Active bleeding, Discharge, Dried blood, Foreign body Mouth exam: negative: Drooling, Laceration, Muffled voice, Tongue elevation Throat exam: negative: Tonsillar erythema, Tonsillomegaly, R peritonsillar mass, L peritonsillar mass - Neck Neck exam: Normal inspection. negative: Meningismus, Tenderness - Respiratory Respiratory exam: Normal lung sounds bilaterally. negative: Rales, Respiratory distress, Rhonchi, Stridor - Cardiovascular Cardiovascular Exam: Regular rate, Normal rhythm, Normal heart sounds - GI/Abdominal GI/Abdominal exam: Soft. negative: Rebound, Rigid, Tenderness - Rectal Rectal exam: Deferred - exam: Deferred - Extremities Extremities exam: Other ((3) raised, erythematous lesions measuring approximately 1.0 cm in diameter with mild surrounding erythema.). negative: Calf tenderness, Pedal edema, Tenderness - Back Back exam: Denies: CVA tenderness (R), CVA tenderness (L) - Neurological Neurological exam: Alert, Normal gait, Oriented X3 - Psychiatric Psychiatric exam: Flat affect - Skin Skin exam: Normal color. negative: Abrasion Type of lesion: negative: abrasion Course Vital Signs 11/14/19 19:50 Temperature 98.3 F Pulse Rate [ 64 Pulse Ox Probe] Respiratory 20 Rate Blood Pressure 124/80 [Left Arm] Pulse Ox 99 - Reevaluation(s) Reevaluation #1: 11/14/19 20:00 Patient is requesting topical treatment for possible bug bites Will prescribe permethrin cream as directed with instructions for follow-up. Patient appears stable for discharge at this time. Disposition Disposition: Discharge Clinical Impression: Dermatitis Disposition: Home, Self-Care Condition: (2) Stable Instructions: Insect Bite or Sting (ED) Additional Instructions: Return to ED if your symptoms worsen or if you have any concerns. Permetherin as directed. Follow-up with your family doctor in 3-5 days as directed. Prescriptions: Permethrin [Elimite] 60 gm TP DAILY #1 tube Forms: Patient Portal Access Time of Disposition: 19:54 Quality - Quality Measures Quality Measures: N/A - Blood Pressure Screening Does Patient Have Any of the Following: No Blood Pressure Classification: Pre-Hypertensive BP Reading Systolic Measurement: 124 Diastolic Measurement: 80 Screening for High Blood Pressure: < Pre-Hypertensive BP, F/U Documented > [G8950] Pre-Hypertensive Follow-up Interventions: Referral to alternative/primary care provider.
== END 2019-11-14 20:03 | disposition home or self-care (01) ==
LOC: ER 19:45
DX: L30.9 Dermatitis, unspecified (principal); R11.0 Nausea
CPT/HCPCS: 99283

== ENCOUNTER 2019-11-16 03:19 | Emergency (ER) | payer MEDICAID ==
[2019-11-16] MEDS ORDERED: ONDANSETRON 4 MG ODT TABLET SL ONE (03:32)
[2019-11-16] MEDS ORDERED: ACETAMINOPHEN 325 MG TAB PO ONE (03:32)
--- NOTE | 2019-11-16 03:38 | Emergency Department Record ---
History of Present Illness - General Chief complaint: Allergic Reaction Stated complaint: ALLERGIC REACTION Time Seen by Provider: 11/16/19 03:22 Source: Patient Mode of Arrival: Ambulatory Limitations: No limitations - History of Present Illness Initial Comments: The patient is here due to multiple complaints. She stats she took Prozac at 11:30 PM last night and then an hour later she developed nausea, abdominal cramping, palpitations and facial swelling. The patient has a long hx of complaints related to allergic reactions and anxiety. There has been no fever, ST, voice changes, pain with swallowing, SOB, CHAR, or SOUZA. MD Complaint: Other Onset/Timin -: Hour(s) Exposure: Medication Symptoms: Facial swelling, Nausea Severity: Mild Treatment Prior to Arrival: None Previous Allergy History: None - Related Data Previous Rx's Medication Instructions Recorded Permethrin [Elimite] 60 gm TP DAILY #1 tube 11/14/19 Hydroxyzine HCl [Atarax] 25 mg PO TID #15 tablet 11/16/19 Allergies Allergy/AdvReac Type Severity Reaction Status Date / Time cephalexin monohydrate Allergy Severe hives Verified 11/14/19 19:53 [From Keflex] amoxicillin Allergy HIVES Verified 11/14/19 19:53 cefdinir Allergy hives Verified 11/14/19 19:53 dicyclomine HCl [From Bentyl] Allergy HIVES Verified 11/14/19 19:53 diphenhydramine HCl Allergy HIVES Verified 11/14/19 19:53 [From Benadryl] Iodinated Contrast Media Allergy PT UNSURE Verified 11/14/19 19:53 OF REACTION Penicillins Allergy HIVES Verified 11/14/19 19:53 ferrous sulfate AdvReac HIVES Verified 11/14/19 19:53 Travel Screening - Travel/Exposure Within Last 30 Days Have you traveled within the last 30 days?: No - Travel/Exposure Within Last Year Have you traveled outside the [place] in the last year?: No - Additonal Travel Details Have you been exposed to anyone with a communicable illness?: No - Travel Symptoms Symptom Screening: None Review of Systems Constitutional: Denies: Chills, Fever Eyes: Denies: Eye discharge ENT: Denies: Congestion Respiratory: Denies: Cough, Dyspnea Past Medical History - SOCIAL HISTORY Smoking Status: Former smoker Alcohol Use: None Drug Use: None - RESPIRATORY Hx Respiratory Disorders: Yes Hx Asthma: Yes (as a child) - CARDIOVASCULAR Hx Cardio Disorders: No - NEURO Hx Neuro Disorders: No - GI Hx GI Disorders: No Hx Celiac Disease: No (states misdiagnosed) - Hx Genitourinary Disorders: Yes Hx UTI: Yes - ENDOCRINE Hx Endocrine Disorders: No - MUSCULOSKELETAL Hx Musculoskeletal Disorders: No - PSYCH Hx Psych Problems: Yes Hx Anxiety: Yes Hx Depression: Yes - HEMATOLOGY/ONCOLOGY Hx Hematology/Oncology Disorders: Yes Hx Anemia: Yes Family Medical History Any Significant Family History?: No Hx Cancer: Grandparents Hx Diabetes: Father, Brother/Sister, Grandparents Hx Heart Disease: Grandparents Physical Exam - General General Appearance: Alert, Oriented x3, Cooperative, No acute distress (The patient is speaking in full sentences with no difficulty or hoarseness.) - Head Head exam: Atraumatic, Normocephalic, Normal inspection - Eye Eye exam: Normal appearance, PERRL - ENT ENT exam: Normal exam (I see no evidence of facial swelling.) Throat exam: Normal inspection. negative: Tonsillar erythema, Tonsillar exudate - Neck Neck exam: Normal inspection, Full ROM. negative: Tenderness - Respiratory Respiratory exam: Normal lung sounds bilaterally. negative: Respiratory distress - Cardiovascular Cardiovascular Exam: Regular rate, Normal rhythm, Normal heart sounds - GI/Abdominal GI/Abdominal exam: Soft, Normal bowel sounds. negative: Rebound, Rigid, Tenderness - Extremities Extremities exam: Normal inspection, Full ROM, Normal capillary refill. negative: Tenderness - Neurological Neurological exam: Alert, Normal gait. negative: Abnormal gait, Motor sensory deficit - Psychiatric Psychiatric exam: negative: Anxious Course Vital Signs 11/16/19 03:23 Temperature 97.9 F Pulse Rate [ 66 Pulse Ox Probe] Respiratory 20 Rate Blood Pressure 118/81 [Left Arm] Pulse Ox 99 - Reevaluation(s) Reevaluation #1: I did try to explain to the patient that I felt there was no significant facial swelling due to the fact I have taken care of her here in the ER multiple times and her face does appear the same as those other encounters. She clearly is having no SOB or voice changes and I see no signs of any allergic reactions so I did discuss the need to treat for the pain and nausea and check a UA and HCG. 11/16/19 03:36 Reevaluation #2: The patient is doing a lot better at this time. She is feeling back to normal and would like to go home. The patient has no CHAR, difficulty swallowing or tongue changes and is talking with a normal voice. 11/16/19 04:20 Disposition Disposition: Discharge Clinical Impression: Medication adverse effect Qualifiers: Encounter type: initial encounter Qualified Code(s): T50.905A - Adverse effect of unspecified drugs, medicaments and biological substances, initial encounter Disposition: Home, Self-Care Condition: (2) Stable Instructions: Adverse Drug Reaction (ED) Additional Instructions: Please take the Atarax as directed and please see your doctor for recheck next week. Return to the ER for any worsening issues. Prescriptions: Hydroxyzine HCl [Atarax] 25 mg PO TID #15 tablet Forms: Patient Portal Access Time of Disposition: 04:22 Quality - Quality Measures Quality Measures: N/A - Blood Pressure Screening View Details: Yes Does Patient Have Any of the Following: No Blood Pressure Classification: Pre-Hypertensive BP Reading Systolic Measurement: 118 Diastolic Measurement: 81 Screening for High Blood Pressure: < Pre-Hypertensive BP, F/U Documented > [G8950] Pre-Hypertensive Follow-up Interventions: Referral to alternative/primary care provider.
[2019-11-16 03:43] LABS: URINE APPEARANCE CLEAR; URINE BILIRUBIN NEGATIVE (NEGATIVE); URINE BLOOD NEGATIVE (NEGATIVE); URINE COLOR YELLOW; URINE GLUCOSE (UA) NEGATIVE (NEGATIVE); URINE KETONE NEGATIVE (NEGATIVE); URINE LEUKOCYTE ESTERASE NEGATIVE (NEGATIVE); URINE NITRITE NEGATIVE (NEGATIVE); URINE PROTEIN NEGATIVE (NEGATIVE); URINE UROBILINOGEN 0.2 E.U./dL (0.20 - 1.00)
[2019-11-16 03:45] LABS: HCG,QUALITATIVE URINE NEGATIVE (NEGATIVE)
[2019-11-16] MEDS ORDERED: DIPHENHYDRAMINE HCL 50 MG/ML VIAL IM ONE (03:46)
== END 2019-11-16 04:28 | disposition home or self-care (01) ==
LOC: ER 03:19
DX: R11.0 Nausea (principal); R22.0 Localized swelling, mass and lump, head; R10.9 Unspecified abdominal pain; T43.225A Adverse effect of selective serotonin reuptake inhibitors, initial encounter; Z87.891 Personal history of nicotine dependence
CPT/HCPCS: 99283 ×2; 96372; 81003; 81025; J1200